=== PATIENT | male | born 1930 | race Caucasian/White ===

== ENCOUNTER 2017-06-17 19:37 | Inpatient (IN) | payer OTHER, MEDICARE ==
[2017-06-17 20:02] VITALS: BMI 26.9
--- NOTE | 2017-06-17 20:29 | PDOC ---
Attending Attestation - ED Attending Attestation I have performed the following: I have examined & evaluated the patient, The case was reviewed & discussed with the resident, I agree w/resident's findings & plan, Exceptions are as noted - HPI HPI: 06/17/17 21:50 The patient is 86 year old male with significant history of hypertension, who presents to the ED for approximately 3 days of progressively worsening AMS. The patient's at bedside reports the patient "fell" out of bed 3 days ago. He denied any physical complaints at the time but states he was unable to stand up since the fall. He does not recall how he fell. Per the patient's , the patient has seemed progressively vague and confused over the past three days. He complains he has been generally weak and ambulates by "crawling on the floor ". He has not been able to stand since his fall and has been lying on the ground , dragging himself to the bathroom when he needs to. This evening, the patient appeared minimally communicative, prompting his ED visit. Speech has been intermittently "garbled" over the past few days with the patient struggling to find words. His speech is reportedly improved on ED arrival. The patient's family also reports several days of decreased PO intake. Reports he last ate 3- 4 days ago. He did not come to the ED sooner because he has refused to per the . No nausea, vomiting, or diaphoresis. No headache, visual changes, numbness or tingling. No fever or chills - Physicial Exam PE: 06/17/17 21:50 GENERAL: Awake, alert, and fully oriented. In no acute distress. HEAD: No signs of trauma EYES: PERRLA, pt not cooperative with EOM exam, sclera anicteric, conjunctiva clear ENT: Auricles normal inspection, hearing grossly normal, nares patent, oropharynx clear without exudates. very dry MM NECK: Normal ROM, supple, no lymphadenopathy, JVD, or masses LUNGS: Breath sounds equal, clear to auscultation bilaterally. No wheezes, and no crackles HEART: Regular rate and rhythm, normal S1 and S2, no murmurs, rubs or gallops ABDOMEN: Soft, nontender, normoactive bowel sounds. No guarding, no rebound. No masses EXTREMITIES: Normal range of motion, no edema. No clubbing or cyanosis. No cords, erythema, or tenderness BACK: No midline spinal tenderness in cervical/thoracic/lumbar region NEUROLOGICAL: word finding difficulty, slurred speech with some stuttering, cranial nerves grossly intact, negative pronator drift, 4/5 strength in all 4 extremities, normal sensation to light touch in all 4 extremities, normal cerebellar exam, gait deferred, normal reflexes and tone SKIN: Skin breakdown to bilateral knees and bilateral elbows. Ecchymosis on anterior left humerus. Bruising on left upper quadrant extrending to the left flank. Bruising on left lower quadrant - Medical Decision Making 06/17/17 23:14 CT of head without contrast, reviewed and interpreted by Imaging Nutritional Chemist. IMPRESSION: No acute intracranial hemorrhage mass effect or midline shift. 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 No evidence of a large territory of subacute stroke. Cannot exclude a small acute stroke. If there is a clinical concern for a small acute stroke then followup MRI of the brain may be needed. Near complete mucosal opacification of the left mastoid air cells most likely consistent with acute mastoiditis. If there is a clinical concern for meningitis then further evaluation and workup with lumbar puncture may be needed. Soft tissue in the left middle ear most likely due to otitis media or cholesteatoma. A verbal report of the abnormal findings were discussed with Dr. Gomez by Dr. Retnaa at the 10:53 PM EST June 17, 2017. THIS DOCUMENT HAS BEEN ELECTRONICALLY SIGNED Elia Retana MD Documentation prepared by Stephanie Santiago, acting as medical anthropologist for Parth Alberto MD. <Stephanie Santiago - Last Filed: 06/17/17 23:14> - Resident Resident Name: Layo Gomez - ED Attending Attestation I have performed the following: I have examined & evaluated the patient, The case was reviewed & discussed with the resident, I agree w/resident's findings & plan, Exceptions are as noted - Medical Decision Making 06/18/17 01:31 86yo M p/w AMS after fall 3 days ago. Vitals unremarkable, exam with slurred speech, bruising, and skin breakdown. C/f CVA 3 days ago, also pt has been down for 3 days and thus c/f rhabdo as well. Will obtain labs, CT, UA, give IVF and admit <Parth Alberto - Last Filed: 06/18/17 01:38>
--- NOTE | 2017-06-17 20:35 | PDOC ---
History of Present Illness - General Chief Complaint: Altered Mental Status Stated Complaint: Altered Mental Status Time Seen by Provider: 06/17/17 19:51 - History of Present Illness Initial Comments: 06/17/17 20:27 Pt is a pleasant 86 year old male with PMH HTN, BPH who was brought to ED by EMS for AMS. This episode began yesterday early afternoon when the pt's found him crawling next to his bed. Pt insists he did not fall but slipped off his bed and reportedly laughed it off. Pt's states that pt was not himself and was very "vague". Per pt's , his mental status continued to deteriorate until this evening when the pt's son arrived at the house and found the pt to be unaware and noncommunicative. It was at this point that they decided to come to the emergency department. Pt has also states he has not been eating or drinking well for "the last couple of days". It was unclear to the pt's whether his decreased intake preceded his fall. NIH Stroke Scale - Last Known Well Date/Time & Onset Date Last Known Well: 06/16/17 Time Last Known Well: 12:00 - Initial Evaluation Level of consciousness: Alert Ask patient the month and their age: Answers both correctly Ask patient to open & close eyes; make fist and let go: Obeys both correctly Best gaze (horizontal eye movement): Normal Visual field testing: No visual field loss Facial paresis (Show teeth/raise eyebrows/close eyes tight): Normal symmetrical movement Motor Function: Left Arm: Some effort against gravity Motor Function: Right Arm: Normal (extends arm 90 (or 45) degrees for 10 seconds without drift Motor Function: Left Leg: Normal (extends leg 30 degrees for 5 seconds without drift) Motor Function: Right Leg: Normal (extends leg 30 degrees for 5 seconds without drift) Limb Ataxia: No ataxia Sensory(Use pinprick test arms,legs,trunk,face/side to side): Normal Best language (Describe picture, name items, read sentences): Mild to moderate aphasia Dysarthria (read several words): Mild to moderate slurring of words Extinction and Inattention: No abnormality - Total Score NIH Stroke Scale Score: 4 Past History - Past Medical History Allergies/Adverse Reactions: Allergies Allergy/AdvReac Type Severity Reaction Status Date / Time No Known Allergies Allergy Verified 06/17/17 19:56 Disorders: Yes (BPH) HTN: Yes - Suicide/Smoking/Psychosocial Hx Smoking History: Unknown if ever smoked Have you smoked in the past 12 months: No Information on smoking cessation initiated: No Hx Alcohol Use: No Drug/Substance Use Hx: No Substance Use Type: None *Physical Exam - Vital Signs Last Vital Signs Temp Pulse Resp BP Pulse Ox 98.0 F 72 16 145/73 100 06/17/17 19:57 06/17/17 19:57 06/17/17 19:57 06/17/17 19:57 06/17/17 19:57 - Physical Exam General Appearance: Yes: Nourished HEENT: positive: EOMI, ALEXANDER. negative: Normal ENT Inspection (dry mucous membranes) Neck: positive: Trachea midline, Supple Respiratory/Chest: positive: Lungs Clear, Normal Breath Sounds. negative: Respiratory Distress, Accessory Muscle Use, Labored Respiration, Wheezing, Hyperresonant, Dullness Cardiovascular: positive: Regular Rhythm, Regular Rate, S1, S2, Murmur (soft systolic murmur with preseverd S1, S2 at LUSB). negative: Edema, JVD Vascular Pulses: Dorsalis-Pedis (R): 1+, Doralis-Pedis (L): 1+ Gastrointestinal/Abdominal: positive: Normal Bowel Sounds, Flat, Soft. negative : Tender, Organomegaly Male Genitalia: positive: other (scrotal swelling) Musculoskeletal: positive: Decreased Range of Motion (left shoulder passive ROM intact. Limited active ROM due to pain. Nontender to palpation) Extremity: positive: Other (abrasions on arms, LLQ of abdomen, b/l knees, toes, ). negative: Tender, Pedal Edema Integumentary: positive: Rash (abrasions as above), Bruising Neurologic: negative: Motor Strength 5/5 (left arm pronated slightly. limited shoulder abduction) ED Treatment Course - LABORATORY CBC & Chemistry Diagram: 06/17/17 21:26 06/18/17 03:21 Medical Decision Making - Medical Decision Making 06/17/17 21:10 Pt is an 86M w/ PMH HTN, BPH who was BIBEMS due to AMS. Pt had an unwitnessed fall and progressively worsening mental status for 2 days which is now improved but not to baseline. Pt has limited active ROM of left shoulder. Pt has pronated left forearm at rest. Pt is clinically very dry. Pt also has scrotal edema. r/o CVA vs SD vs infection -Stroke protocol was ordered. -CT head -Troponin -EKG -Lipids -CBC -CMP -UA r/o traumatic injury -shoulder xray -pelvic xray *DC/Admit/Observation/Transfer Diagnosis at time of Disposition: Rhabdomyolysis Qualifiers: Rhabdomyolysis type: traumatic Encounter type: initial encounter Qualified Code (s): T79.6XXA - Traumatic ischemia of muscle, initial encounter - Referrals - Patient Instructions - Post Discharge Activity
[2017-06-17] MEDS ORDERED: SODIUM CHLORIDE 1,000 ML IV SCH (20:45)
[2017-06-17] MEDS ORDERED: SODIUM CHLORIDE 1,000 ML IV STA (21:28)
[2017-06-17 21:39] LABS: BASO % 0.2 % (0-2.0); HEMATOCRIT 46.2 % (35.4-49); HEMOGLOBIN 15.4 GM/dL (11.7-16.9); LYMPH % 2.5 % (8-40); MCH 28.5 pg (25.7-33.7); MCHC 33.4 g/dl (32.0-35.9); MEAN CELL VOLUME 85.2 fl (80-96); MEAN PLT VOLUME 9.4 fl (7.5-11.1); MONO % 9.3 % (3.8-10.2); PLATELET COUNT 234 K/MM3 (134-434); RBC 5.42 M/mm3 (4.00-5.60); RDW 14.3 % (11.9-15.9); WHITE BLOOD COUNT 17.9 K/mm3 (4.0-10.0)
[2017-06-17 21:51] LABS: INR 1.12 (0.82-1.09); PROTHROMBIN TIME (PATIENT) 12.6 SEC (9.98-11.88)
[2017-06-17 22:09] LABS: ALBUMIN 3.7 g/dl (3.4-5.0); ANION GAP 13 (8-16); BILIRUBIN,TOTAL 2.6 mg/dL (0.2-1.0); BLOOD UREA NITROGEN 69 mg/dL (7-18); CALCIUM 9.3 mg/dL (8.5-10.1); CHLORIDE 108 mmol/L (98-107); CHOLESTEROL 217 mg/dL (50-200); CO2 27 mmol/L (21-32); CREATININE 1.3 mg/dL (0.7-1.3); GLUCOSE,RANDOM 125 mg/dL (74-106); HDL CHOLESTEROL 51 mg/dL (40-60); LDL CHOLESTEROL (ONLY SJRH) 135 mg/dL (5-100); POTASSIUM 3.8 mmol/L (3.5-5.1); SGPT/ALT 209 U/L (12-78); SODIUM 148 mmol/L (136-145); TRIGLYCERIDES 174 mg/dL (35-160)
[2017-06-17 22:32] LABS: ALK PHOS 81 U/L (45-117); SGOT/AST 404 U/L (15-37)
[2017-06-17] MEDS ORDERED: SODIUM CHLORIDE 0.9% 500 ML INFUS.BAG IV ONE (22:51)
[2017-06-18] MEDS ORDERED: ACETAMINOPHEN 500 MG TABLET (FP) PO ONE (00:58)
[2017-06-18] MEDS ORDERED: SODIUM CHLORIDE 0.9% 500 ML INFUS.BAG IV ONE (00:59)
--- NOTE | 2017-06-18 01:13 | HP ---
CHIEF COMPLAINT: AMS, Rhabdomyolysis PCP: HISTORY OF PRESENT ILLNESS: The patient is 86 year old male with significant history of hypertension, who presents to the ED for approximately 3 days of progressively worsening AMS. The patient's at bedside reports the patient "fell" out of bed 3 days ago. He denied any physical complaints at the time but states he was unable to stand up since the fall. He does not recall how he fell. Per the patient's , the patient has seemed progressively vague and confused over the past three days. He complains he has been generally weak and ambulates by "crawling on the floor ". He has not been able to stand since his fall and has been lying on the ground , dragging himself to the bathroom when he needs to. This evening, the patient appeared minimally communicative, prompting his ED visit. Speech has been intermittently "garbled" over the past few days with the patient struggling to find words. His speech is reportedly improved on ED arrival. The patient's family also reports several days of decreased PO intake. Reports he last ate 3- 4 days ago. He did not come to the ED sooner because he has refused to per the . No nausea, vomiting, or diaphoresis. No headache, visual changes, numbness or tingling. No fever or chills ER course was notable for: (1) head CT , cervical spine CT (2)CXR , hip/pelvis Xray (3)CBC, BMP remarkable for leukocytosis and elevated CK, CK-MB , hypernatremia Recent Travel:denies PAST MEDICAL HISTORY: HTN, BPH PAST SURGICAL HISTORY: denies Social History: Smokin/4 pack for 10 years quit 40 years ago Alcohol:denies Drugs: denies Family History: Allergies No Known Allergies Allergy (Verified 06/17/17 19:56) HOME MEDICATIONS: REVIEW OF SYSTEMS CONSTITUTIONAL: Absent: fever, chills, diaphoresis, generalized weakness, malaise, loss of appetite, weight change HEENT: Absent: rhinorrhea, nasal congestion, throat pain, throat swelling, difficulty swallowing, mouth swelling, ear pain, eye pain, visual changes CARDIOVASCULAR: Absent: chest pain, syncope, palpitations, irregular heart rate, lightheadedness , peripheral edema RESPIRATORY: Absent: cough, shortness of breath, dyspnea with exertion, orthopnea, wheezing, stridor, hemoptysis GASTROINTESTINAL: Absent: abdominal pain, abdominal distension, nausea, vomiting, diarrhea, constipation, melena, hematochezia GENITOURINARY: Absent: dysuria, frequency, urgency, hesitancy, hematuria, flank pain, genital pain MUSCULOSKELETAL: Absent: myalgia, arthralgia, joint swelling, back pain, neck pain SKIN: Absent: rash, itching, pallor HEMATOLOGIC/IMMUNOLOGIC: Absent: easy bleeding, easy bruising, lymphadenopathy, frequent infections ENDOCRINE: Absent: unexplained weight gain, unexplained weight loss, heat intolerance, cold intolerance NEUROLOGIC: Absent: headache, focal weakness or paresthesias, dizziness, unsteady gait, seizure, mental status changes, bladder or bowel incontinence PSYCHIATRIC: Absent: anxiety, depression, suicidal or homicidal ideation, hallucinations. PHYSICAL EXAMINATION Vital Signs - 24 hr 06/17/17 19:57 Temperature 98.0 F Pulse Rate 72 Respiratory 16 Rate Blood Pressure 145/73 O2 Sat by Pulse 100 Oximetry (%) GENERAL: Awake, alert, and fully oriented, in no acute distress. HEAD: Normal with no signs of trauma.2x1 cm erythema on left cheek EYES: Pupils equal, round and reactive to light, extraocular movements intact, sclera anicteric, conjunctiva clear. EARS, NOSE, THROAT: dry mucous membranes. NECK: Normal range of motion, supple without lymphadenopathy, JVD, LUNGS: Breath sounds equal, clear to auscultation bilaterally. No wheezes, and no crackles. No accessory muscle use. HEART: Regular rate and rhythm, normal S1 and S2 without murmur, rub or gallop. ABDOMEN: Soft, nontender, distended, normoactive bowel sounds, no guarding, no rebound, scrotum swollen with erythema. Right inguinal erythema MUSCULOSKELETAL:. No CVA tenderness. UPPER EXTREMITIES: 2+ pulses, warm, well-perfused. No cyanosis. No clubbing. No peripheral edema.erythema with echymoses on both elbows, left arm pain with limited range of motion due to pain LOWER EXTREMITIES: 2+ pulses, warm, well-perfused. No calf tenderness. No peripheral edema. B/L knee sever echymoses NEUROLOGICAL: Cranial nerves II-XII intact.slurry speech. gait not observed . PSYCHIATRIC: Cooperative. Good eye contact. Appropriate mood and affect. SKIN: Warm, dry, multiple echymoses on his body with perpura on his stomach Laboratory Results - last 24 hr 06/17/17 06/17/17 06/17/17 21:20 21:26 21:26 WBC 17.9 H D RBC 5.42 Hgb 15.4 Hct 46.2 MCV 85.2 MCH 28.5 MCHC 33.4 RDW 14.3 Plt Count 234 D MPV 9.4 Neutrophils % 88.0 H Lymphocytes % 2.5 L D Monocytes % 9.3 Eosinophils % 0.0 D Basophils % 0.2 PT with INR 12.60 H INR 1.12 Sodium Potassium Chloride Carbon Dioxide Anion Gap BUN Creatinine Creat Clearance w eGFR Random Glucose Calcium Total Bilirubin AST ALT Alkaline Phosphatase Creatine Kinase Creatine Kinase Index CK-MB (CK-2) Troponin I Total Protein Albumin Triglycerides Cholesterol Total LDL Cholesterol HDL Cholesterol Lipase 52 L Blood Type Antibody Screen 06/17/17 06/17/17 21:26 21:26 WBC RBC Hgb Hct MCV MCH MCHC RDW Plt Count MPV Neutrophils % Lymphocytes % Monocytes % Eosinophils % Basophils % PT with INR INR Sodium 148 H Potassium 3.8 Chloride 108 H Carbon Dioxide 27 Anion Gap 13 BUN 69 H Creatinine 1.3 Creat Clearance w eGFR 52.22 Random Glucose 125 H Calcium 9.3 Total Bilirubin 2.6 H AST 404 H ALT 209 H Alkaline Phosphatase 81 Creatine Kinase 9921 H Creatine Kinase Index 0.6 CK-MB (CK-2) 63.134 H Troponin I 0.07 H Total Protein 7.0 Albumin 3.7 Triglycerides 174 H Cholesterol 217 H Total LDL Cholesterol 135 H HDL Cholesterol 51 Lipase Blood Type O POSITIVE Antibody Screen Negative CBC, BMP 06/17/17 21:26 06/17/17 21:26 06/18/2017 CT of head without contrast, reviewed and interpreted by Imaging Pickle Solution Maker. IMPRESSION: No acute intracranial hemorrhage mass effect or midline shift. 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 No evidence of a large territory of subacute stroke. Cannot exclude a small acute stroke. If there is a clinical concern for a small acute stroke then followup MRI of the brain may be needed. Near complete mucosal opacification of the left mastoid air cells most likely consistent with acute mastoiditis. If there is a clinical concern for meningitis then further evaluation and workup with lumbar puncture may be needed. Soft tissue in the left middle ear most likely due to otitis media or cholesteatoma. ASSESSMENT/PLAN: 86 year old male with PMH of HTN , BPH presented to the ED with AMS, S/P mechanical fall 2 days ago was found to have rhabdomyolysis with elevated trop , dehydration, AMS and was admitted for further evaluation # Rhabdomyolysis S/p fall * CK, CK-MB elvated * IV fluids NS bolused X3 in ED * continue with NS @ 100 CC/hr * Repeat CBC, CMP in AM * monitor urine out put * DC hyzar for now # JUANIS * BUN/Cr 69/1.3 * likley 2/2 dehydration 2/2 low oral intake vs rhabdo damage vs UTI * IVf NS @ 100 CC/hr * Urine lytes , * UA, urine cx * Avoid nephrotoxic agents * renal consult * Renal US * * # R/O RI likely demand ischemia * trop I 0.07 * trend trop * EKG without ischemic changes * repeat EKG in AM * Echo # Leukocytosis R/O infection moist likely UTI * WBC 17,000 * Aguiar cx (urine, blood ) * Ceftriaxone 1 gm daily after blood cx * repeat CBC with def * CXR * Sheldon cath , * UA and Urine cx #Acute metabolic encephalopathy R/O CVA * patient family stated that his metal status is not the same in the setting of acute kidney injury with elevated sodium possible metabolic encephalopathy vs infection. * will give the patient 1 stat dose of ceftriaxone after the urine culture and blood culture is sent * c/w IVF hydration * CT scan of the head to r/o stroke * will consider repeating the CT if necessary or an acute change in the patient mental status # Neutrophilia * can be reactive 2/2 to dehydration however in the setting of an acute change in his status * will obtain blood culture, urine culture, * monitor for signs of fever or chill, * give 1 mg ceftriaxone daily X3 day # Hypernatremia 2/2 dehydration vs meds * NA 148 on admission * IVf NS @ 100 CC/hr * water def 2.4 L * monitor * dont drop more than 10 mmlq in 24 hr * Dc hyzar * # left arm pain * limited ROM , with strength 3/5 , sensation intact * F/U Xray * #Transaminities lekley 2/2 dehydration and rhabdo * Abdomen US * repeat lab * continue IV fluids * # HLD * TG, LDL , Cholesterol elevated * low fat diet * avoid statins now due to rhabdo # HTN * Monitor * Hold Hyzar * continue Atenolol # BPH * continue home meds * urology consult # scrotum swelling R/O orchitis * not painful * US scrotum and content * start on ceftriaxone 2gm daily # FEN * Ivf NS @ 100 CC/hr (3 L boluses in ED ) * E: hypernatremia , monitor * N: low sodium diet # proph * SCDS B/L LE * # Dispo * Admit to med-surg Visit type - Emergency Visit Emergency Visit: Yes ED Registration Date: 06/18/17 Care time: The patient presented to the Emergency Department on the above date and was hospitalized for further evaluation of their emergent condition. - New Patient This patient is new to me today: Yes Date on this admission: 06/18/17 - Critical Care Critical Care patient: No
[2017-06-18] MEDS ORDERED: ACETAMINOPHEN 325 MG TABLET (FP) ONE (01:14)
--- NOTE | 2017-06-18 02:33 | PN ---
Teaching Attending Note Name of Resident: Jagjit Baldwin ATTENDING PHYSICIAN STATEMENT I saw and evaluated the patient. I reviewed the resident's note and discussed the case with the resident. I agree with the resident's findings and plan as documented. SUBJECTIVE: patient is NAD, lying in bed no complaints swelling f the scrotum bruises on the arm abdomen distended positive BS no edema dry mouth OBJECTIVE: ASSESSMENT AND PLAN: Problem List - Problems (1) JUANIS (acute kidney injury) Assessment/Plan: 2/2 rhabdomyolysis and dehydration - obtain renal ultrasounds - insert a phillip catheter - IVF hydration at 100cc/hr can increase to 150 cc./hr after an echocardiogram is obtained - obtain urine analysis - obtain urine electrolytes - obtain urine creatinine - renal consult - repeat labs - correct electrolytes - stop the hyzaar Code(s): N17.9 - ACUTE KIDNEY FAILURE, UNSPECIFIED (2) Rhabdomyolysis Code(s): M62.82 - RHABDOMYOLYSIS (3) Dehydration Assessment/Plan: 2/2 medication use and lack of intake of fluids stop the hyzaar IVF monitor I/O Code(s): E86.0 - DEHYDRATION (4) Hypernatremia Assessment/Plan: 2/2 to dehydration water deficit 2.4 L Code(s): E87.0 - HYPEROSMOLALITY AND HYPERNATREMIA (5) Acute metabolic encephalopathy Assessment/Plan: patient family stated that his metal status is not the same in the setting of acute kidney injury with elevated sodium possible metabolic encephalopathy vs infection. will give the patient 1 stat dose of ceftriaxone after the urine culture and blood culture is sent c/w IVF hydration CT scan of the head to r/o stroke will consider repeating the CT if necessary or an acute change in the patient mental status Code(s): G93.41 - METABOLIC ENCEPHALOPATHY (6) Neutrophilia Assessment/Plan: can be reactive 2/2 to dehydration however in the setting of an acute change in his status will obtain blood culture, urine culture, monitor for signs of fever or chill, give 1 dose of ceftriaxone Code(s): D72.9 - DISORDER OF WHITE BLOOD CELLS, UNSPECIFIED (7) BPH (benign prostatic hyperplasia) Assessment/Plan: urology evaluation Code(s): N40.0 - BENIGN PROSTATIC HYPERPLASIA WITHOUT LOWER URINRY TRACT SYMP
[2017-06-18] MEDS ORDERED: CEFTRIAXONE 1 MG in DEXTROSE 5%-WATER - 50 ML IVPB SCH (02:44)
[2017-06-18] MEDS ORDERED: SODIUM CHLORIDE 1,000 ML IV SCH (02:45)
[2017-06-18] MEDS ORDERED: CEFTRIAXONE 1 GM/50 ML BAG ONE (03:44)
[2017-06-18 04:02] LABS: ALBUMIN 3.2 g/dl (3.4-5.0); ALK PHOS 67 U/L (45-117); ANION GAP 9 (8-16); BLOOD UREA NITROGEN 60 mg/dL (7-18); CALCIUM 7.9 mg/dL (8.5-10.1); CHLORIDE 114 mmol/L (98-107); CO2 27 mmol/L (21-32); GLUCOSE,RANDOM 112 mg/dL (74-106); MAGNESIUM 2.7 mg/dL (1.8-2.4); PHOSPHOROUS 3.4 mg/dL (2.5-4.9); POTASSIUM 3.6 mmol/L (3.5-5.1); SGOT/AST 282 U/L (15-37); SGPT/ALT 170 U/L (12-78); SODIUM 150 mmol/L (136-145); TOT PROT 6.1 g/dl (6.4-8.2)
[2017-06-18 05:47] LABS: URINE APPEARANCE CLOUDY; URINE BILIRUBIN NEGATIVE (NEGATIVE); URINE BLOOD 3+ (NEGATIVE); URINE COLOR AMBER; URINE GLUCOSE (UA) NEGATIVE (NEGATIVE); URINE KETONE 1+ (NEGATIVE); URINE NITRITE POSITIVE (NEGATIVE); URINE UROBILINOGEN 4.0 E.U/dl mg/dL (0.2-1.0)
[2017-06-18 06:14] LABS: URINE LEUK ESTERASE 2+ (NEGATIVE); URINE PROTEIN 2+ (NEGATIVE)
[2017-06-18 06:16] LABS: EPI CELLS RARE /HPF (FEW); URINE HYALINE CAST 6 /lpf; URINE MUCUS RARE
[2017-06-18] MEDS ORDERED: HEPARIN NA (PORCINE) 5,000 UNITS/ML 1ML VIAL ONE (06:54)
[2017-06-18] MEDS: HEPARIN NA (PORCINE) 5,000 UNITS/ML 1ML VIAL SQ SCH ×3 (07:00→21:38)
--- NOTE | 2017-06-18 13:08 | EKG ---
Test Reason : Blood Pressure : / mmHG Vent. Rate : 067 BPM Atrial Rate : 067 BPM P-R Int : 172 ms QRS Dur : 148 ms QT Int : 484 ms P-R-T Axes : 052 -70 084 degrees QTc Int : 511 ms NORMAL SINUS RHYTHM RIGHT BUNDLE BRANCH BLOCK LEFT ANTERIOR FASCICULAR BLOCK BIFASCICULAR BLOCK SEPTAL INFARCT , AGE UNDETERMINED T WAVE ABNORMALITY, CONSIDER LATERAL ISCHEMIA ABNORMAL ECG WHEN COMPARED WITH ECG OF 17-JUN-2017 21:08, SEPTAL INFARCT IS NOW PRESENT Confirmed by MD Hal, Terrell ([id number]) on 06/18/2017 1:08:06 PM Referred By: Confirmed By:Terrell Hong MD
--- NOTE | 2017-06-18 13:10 | EKG ---
Test Reason : Blood Pressure : / mmHG Vent. Rate : 066 BPM Atrial Rate : 066 BPM P-R Int : 192 ms QRS Dur : 134 ms QT Int : 490 ms P-R-T Axes : 109 -77 049 degrees QTc Int : 513 ms POOR DATA QUALITY, INTERPRETATION MAY BE ADVERSELY AFFECTED NORMAL SINUS RHYTHM LEFT AXIS DEVIATION RIGHT BUNDLE BRANCH BLOCK ABNORMAL ECG NO PREVIOUS ECGS AVAILABLE Confirmed by MD Hal, Terrell ([id number]) on 06/18/2017 1:09:53 PM Referred By: Confirmed By:Terrell Hong MD
[2017-06-18] MEDS: ATENOLOL 50 MG TABLET (FP) PO SCH (14:00)
--- NOTE | 2017-06-18 14:47 | CONSULT ---
Consultation: REQUESTING PROVIDER: CONSULT REQUEST: We have been asked to medically evaluate this patient for juanis HISTORY OF PRESENT ILLNESS: This is an 86 yo M with PMH of HTN and PBH, who presented due to AMS x 3 d, s/p fall, found to have UTI, hypernatremia, JUANIS and in Rhabdo. 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 Patient reports 2 weeks of dysuria w/o f/c, pelvic or flank pain. He reports worsening confusion, new incontinence, genearlized and b/l LE weakness and decreased PO intake x 3 days. He denies UTI, pyelo or prostatitis history. He reportedly fell down 2 days ago and crawled on [facility] floor causing multiple abrasions on knees, hyps, abdomen and arms. In ED found to have gross hematuria. On presentation afebrile and hemodynamically stable, aaox3 with mild lethargy. Deneis n/v, cp, sob, cough, h/a, visula changes, numbness. REVIEW OF SYSTEMS: CONSTITUTIONAL: Absent: fever, chills, diaphoresis, HEENT: Absent: rhinorrhea, nasal congestion, throat pain, throat swelling, difficulty swallowing CARDIOVASCULAR: Absent: chest pain, syncope, palpitations, lightheadedness, peripheral edema RESPIRATORY: Absent: cough, shortness of breath, dyspnea with exertion, orthopnea GASTROINTESTINAL: Absent: abdominal pain, abdominal distension, nausea, vomiting, diarrhea, constipation GENITOURINARY: Absent: dysuria, flank pain, genital pain MUSCULOSKELETAL: Absent:back pain, neck pain SKIN: Absent: rash, itching, pallor HEMATOLOGIC/IMMUNOLOGIC: Absent: e frequent infections ENDOCRINE: Absent: unexplained weight gain, unexplained weight loss, heat intolerance, cold intolerance NEUROLOGIC: Absent: headache, seizure PSYCHIATRIC: Absent: anxiety, depression PHYSICAL EXAMINATION Vital Signs - 24 hr 06/17/17 06/18/17 06/18/17 19:57 02:25 07:00 Temperature 98.0 F 97.6 F Pulse Rate 72 Pulse Rate [ 66 64 Apical] Respiratory 16 18 21 Rate Blood Pressure 145/73 Blood Pressure 158/58 158/60 [Right Arm] O2 Sat by Pulse 100 97 98 Oximetry (%) 06/18/17 06/18/17 06/18/17 07:30 11:00 14:34 Temperature 98.1 F Pulse Rate 77 73 Pulse Rate [ Apical] Respiratory 18 Rate Blood Pressure 150/72 139/103 Blood Pressure [Right Arm] O2 Sat by Pulse 100 Oximetry (%) GENERAL: Awake, alert, and fully oriented, in no acute distress, mild lethargy. HEAD: Normal with no signs of trauma. EYES: Pupils equal, round and reactive to light, extraocular movements intact, sclera anicteric, conjunctiva clear. No lid lag. EARS, NOSE, THROAT: dry mucous membranes. NECK: supple without JVD, LUNGS: Breath sounds equal, clear to auscultation bilaterally. HEART: Regular rate and rhythm, normal S1 and S2 ABDOMEN: Soft, nontender, not distended, normoactive bowel sounds, no guarding MUSCULOSKELETAL: No CVA tenderness. b/l knee edema UPPER EXTREMITIES: 2+ pulses, warm, well-perfused. No cyanosis. No peripheral edema. LOWER EXTREMITIES: DP not palpabel b/l, warm, well-perfused. No calf tenderness. No peripheral edema. R great lateral toe black dry echar ulcer that appears arterial. L great toe medial black echar possible arterial vs abrasion. NEUROLOGICAL: Cranial nerves II-XII grossly intact. slurred speech due to dry tongue PSYCHIATRIC: Cooperative. Good eye contact. Appropriate mood and affect. SKIN: Warm, dry. multiple abrasions on b/l knees, L hip and abdomen Laboratory Results - last 24 hr 06/17/17 06/17/17 06/17/17 21:20 21:26 21:26 WBC 17.9 H D RBC 5.42 Hgb 15.4 Hct 46.2 MCV 85.2 MCH 28.5 MCHC 33.4 RDW 14.3 Plt Count 234 D MPV 9.4 Neutrophils % 88.0 H Lymphocytes % 2.5 L D Monocytes % 9.3 Eosinophils % 0.0 D Basophils % 0.2 PT with INR 12.60 H INR 1.12 Sodium Potassium Chloride Carbon Dioxide Anion Gap BUN Creatinine Creat Clearance w eGFR Random Glucose Calcium Phosphorus Magnesium Total Bilirubin AST ALT Alkaline Phosphatase Creatine Kinase Creatine Kinase Index CK-MB (CK-2) Troponin I Total Protein Albumin Triglycerides Cholesterol Total LDL Cholesterol HDL Cholesterol Lipase 52 L Urine Color Urine Appearance Urine pH Ur Specific [place] Urine Protein Urine Glucose (UA) Urine Ketones Urine Blood Urine Nitrite Urine Bilirubin Urine Urobilinogen Ur Leukocyte Esterase Urine WBC (Auto) Urine RBC (Auto) Ur Epithelial Cells Hyaline Casts Urine Mucus Ur Random Sodium Ur Random Potassium Ur Random Chloride Blood Type Antibody Screen 06/17/17 06/17/17 06/18/17 21:26 21:26 03:21 WBC RBC Hgb Hct MCV MCH MCHC RDW Plt Count MPV Neutrophils % Lymphocytes % Monocytes % Eosinophils % Basophils % PT with INR INR Sodium 148 H 150 H Potassium 3.8 3.6 Chloride 108 H 114 H Carbon Dioxide 27 27 Anion Gap 13 9 BUN 69 H 60 H Creatinine 1.3 1.0 D Creat Clearance w eGFR 52.22 > 60 Random Glucose 125 H 112 H Calcium 9.3 7.9 L Phosphorus 3.4 Magnesium 2.7 H Total Bilirubin 2.6 H 2.0 H D AST 404 H 282 H D ALT 209 H 170 H Alkaline Phosphatase 81 67 Creatine Kinase 9921 H Creatine Kinase Index 0.6 CK-MB (CK-2) 63.134 H Troponin I 0.07 H Total Protein 7.0 6.1 L Albumin 3.7 3.2 L Triglycerides 174 H Cholesterol 217 H Total LDL Cholesterol 135 H HDL Cholesterol 51 Lipase Urine Color Urine Appearance Urine pH Ur Specific [place] Urine Protein Urine Glucose (UA) Urine Ketones Urine Blood Urine Nitrite Urine Bilirubin Urine Urobilinogen Ur Leukocyte Esterase Urine WBC (Auto) Urine RBC (Auto) Ur Epithelial Cells Hyaline Casts Urine Mucus Ur Random Sodium Ur Random Potassium Ur Random Chloride Blood Type O POSITIVE Antibody Screen Negative 06/18/17 06/18/17 06/18/17 03:21 05:31 05:31 WBC RBC Hgb Hct MCV MCH MCHC RDW Plt Count MPV Neutrophils % Lymphocytes % Monocytes % Eosinophils % Basophils % PT with INR INR Sodium Potassium Chloride Carbon Dioxide Anion Gap BUN Creatinine Creat Clearance w eGFR Random Glucose Calcium Phosphorus Magnesium Total Bilirubin AST ALT Alkaline Phosphatase Creatine Kinase Creatine Kinase Index CK-MB (CK-2) Troponin I 0.08 H Total Protein Albumin Triglycerides Cholesterol Total LDL Cholesterol HDL Cholesterol Lipase Urine Color Rylee Urine Appearance Cloudy Urine pH 5.0 Ur Specific [place] 1.019 Urine Protein 2+ H Urine Glucose (UA) Negative Urine Ketones 1+ H Urine Blood 3+ H Urine Nitrite Positive Urine Bilirubin Negative Urine Urobilinogen 4.0 e.u/dl Ur Leukocyte Esterase 1+ H Urine WBC (Auto) 152 Urine RBC (Auto) 361 Ur Epithelial Cells Rare Hyaline Casts 6 Urine Mucus Rare Ur Random Sodium 16 Ur Random Potassium 35.4 Ur Random Chloride 33 Blood Type Antibody Screen 06/18/17 06/18/17 06:36 06:36 WBC RBC Hgb Hct MCV MCH MCHC RDW Plt Count MPV Neutrophils % Lymphocytes % Monocytes % Eosinophils % Basophils % PT with INR INR Sodium Potassium Chloride Carbon Dioxide Anion Gap BUN Creatinine Creat Clearance w eGFR Random Glucose Calcium Phosphorus Magnesium Total Bilirubin AST ALT Alkaline Phosphatase Creatine Kinase 5054 H Cancelled Creatine Kinase Index 0.7 CK-MB (CK-2) 35.521 H Troponin I 0.07 H Total Protein Albumin Triglycerides Cholesterol Total LDL Cholesterol HDL Cholesterol Lipase Urine Color Urine Appearance Urine pH Ur Specific [place] Urine Protein Urine Glucose (UA) Urine Ketones Urine Blood Urine Nitrite Urine Bilirubin Urine Urobilinogen Ur Leukocyte Esterase Urine WBC (Auto) Urine RBC (Auto) Ur Epithelial Cells Hyaline Casts Urine Mucus Ur Random Sodium Ur Random Potassium Ur Random Chloride Blood Type Antibody Screen Active Medications Generic Name Dose Route Start Last Admin Trade Name Freq PRN Reason Stop Dose Admin Atenolol 100 mg 06/18/17 10:00 06/18/17 14:00 Tenormin - PO 100 mg DAILY CODEY Administration Doxazosin Mesylate 4 mg 06/18/17 22:00 Cardura - PO HS CODEY Heparin Sodium (Porcine) 5,000 unit 06/18/17 06:00 06/18/17 14:00 Heparin - SQ 5,000 unit TID CODEY Administration Sodium Chloride 1,000 mls @ 100 mls/hr 06/18/17 02:45 06/18/17 03:53 Normal Saline - IV 100 mls/hr ASDIR CODEY Administration Ceftriaxone Sodium 1 mg/ 50 mls @ 100 mls/hr 06/18/17 02:44 06/18/17 03:53 Dextrose IVPB 100 mls/hr DAILY CODEY Administration ASSESSMENT/PLAN: This is an 86 yo M with PMH of HTN and PBH, who presented due to AMS x 3 d, s/p fall, found to have UTI, hypernatremia, JUANIS and in Rhabdo. 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 Complicated UTI -in setting of BPH -continue abx, f/u cultures JUANIS secondary to dehydration and Rhabdo Hypernatremia -decreased po intake and muscular injury due to fall in setting of sepsis and CVA -CK 9900, bun/creat 69/1.3 improved to 1, GFR improved to > 60 from 52, NA 150 -free water deficit 2.9 L s/p 3L NS -change fluids to 1/2 NS @ 100 -Urology consult -monitor renal fxn, daily cpk, avoid neprotoxic agents Acute R lenticulostriate infarct -MRI reviewed -stroke workup per neurology -statin, permissive HTN, tele monitoring -TTE, car duplex, speech/swallow eval; can add po free water when cleared for PO -can give Asa Multiple abrasions -no fractures found on imaging -local wound care Dispo: We will continue to follow the patient. Thank you for this consultative opportunity. Problem List - Problems (1) UTI (urinary tract infection) Code(s): N39.0 - URINARY TRACT INFECTION, SITE NOT SPECIFIED (2) HTN (hypertension) Code(s): I10 - ESSENTIAL (PRIMARY) HYPERTENSION (3) JUANIS (acute kidney injury) Code(s): N17.9 - ACUTE KIDNEY FAILURE, UNSPECIFIED (4) BPH (benign prostatic hyperplasia) Code(s): N40.0 - BENIGN PROSTATIC HYPERPLASIA WITHOUT LOWER URINRY TRACT SYMP (5) Dehydration Code(s): E86.0 - DEHYDRATION (6) Hypernatremia Code(s): E87.0 - HYPEROSMOLALITY AND HYPERNATREMIA (7) Neutrophilia Code(s): D72.9 - DISORDER OF WHITE BLOOD CELLS, UNSPECIFIED (8) Rhabdomyolysis Code(s): M62.82 - RHABDOMYOLYSIS Qualifiers: Rhabdomyolysis type: traumatic Encounter type: initial encounter Qualified Code(s): T79.6XXA - Traumatic ischemia of muscle, initial encounter Visit type - Emergency Visit Emergency Visit: Yes ED Registration Date: 06/18/17 Care time: The patient presented to the Emergency Department on the above date and was hospitalized for further evaluation of their emergent condition. - New Patient This patient is new to me today: Yes Date on this admission: 06/18/17 - Critical Care Critical Care patient: No
--- NOTE | 2017-06-18 15:04 | PN ---
Teaching Attending Note Name of Resident: Andreea Li (Nephrology) ATTENDING PHYSICIAN STATEMENT I saw and evaluated the patient. I reviewed the resident's note and discussed the case with the resident. I agree with the resident's findings and plan as documented. Renal lease see consult filled out by resident. Pt is an 86 year old male with pmhx of HTN and BPH who was brought in with a change in mental status. He slipped and fell out of bed and was crawling around the house. His mental status was deteriorating. He did not come to the ER until his son found him at home. He has been like that for 3 days. He has multiple bruises and scabs on his knees and let hip. I was called to evaluate him for JUANIS and hypernatremia. Pt was also found to have rhabdo. Pt had phillip placed and he has gross hematuria. PMHx htn bph family hx denies social hx, neg smoking ros malaise nkda Current Medications Generic Name Dose Route Start Last Admin Trade Name Freq PRN Reason Stop Dose Admin Atenolol 100 mg 06/18/17 10:00 06/18/17 14:00 Tenormin - PO 100 mg DAILY CODEY Administration Doxazosin Mesylate 4 mg 06/18/17 22:00 Cardura - PO HS CODEY Heparin Sodium (Porcine) 5,000 unit 06/18/17 06:00 06/18/17 14:00 Heparin - SQ 5,000 unit TID CODEY Administration Sodium Chloride 1,000 mls @ 100 mls/hr 06/18/17 02:45 06/18/17 03:53 Normal Saline - IV 100 mls/hr ASDIR CODEY Administration Ceftriaxone Sodium 1 mg/ 50 mls @ 100 mls/hr 06/18/17 02:44 06/18/17 03:53 Dextrose IVPB 100 mls/hr DAILY CODEY Administration Last Vital Signs Temp Pulse Resp BP Pulse Ox 98.1 F 73 18 139/103 100 06/18/17 11:00 06/18/17 14:34 06/18/17 11:00 06/18/17 14:34 06/18/17 07:30 Current Active Problems JUANIS (acute kidney injury) (Acute) Acute metabolic encephalopathy (Acute) BPH (benign prostatic hyperplasia) (Acute) Dehydration (Acute) Hypernatremia (Acute) Neutrophilia (Acute) Rhabdomyolysis (Acute) Laboratory Tests 09/11/16 06/17/17 06/17/17 11:50 21:26 21:26 WBC 17.9 H D Hct 46.2 Sodium 148 H Potassium Chloride Carbon Dioxide Anion Gap BUN Creatinine 0.8 1.3 Creatine Kinase 9921 H Troponin I 0.07 H Urine Protein Urine Ketones Urine Blood 06/18/17 06/18/17 06/18/17 03:21 03:21 05:31 WBC Hct Sodium 150 H Potassium 3.6 Chloride 114 H Carbon Dioxide 27 Anion Gap 9 BUN 60 H Creatinine 1.0 D Creatine Kinase Troponin I 0.08 H Urine Protein 2+ H Urine Ketones 1+ H Urine Blood 3+ H 06/18/17 06:36 WBC Hct Sodium Potassium Chloride Carbon Dioxide Anion Gap BUN Creatinine Creatine Kinase 5054 H Troponin I 0.07 H Urine Protein Urine Ketones Urine Blood cardio s1s2 reg pulm clear GI soft, bs positive ext bilateral knee abrasions with scabs right great toe ulcer neuro awake skin multiple bruises and scrapes on limbs and abdomen phillip present with gross hematuria circ pos pulses renal ultrasound neg hydro mri small acute infarct ct head neg cxr reviewed Impression 1. JUANIS 2. Hypernatremia 3. rhabdo 4. CVA 5. s/p fall 6. change in mental status 7. gross hematuria 8. hx HTN 9. leukocytosis Plan - change fluids to 1/2 ns - cpk is improving, repeat daily - urology evaluation for gross hematuria - neuro eval for CVA - rhabdo likely from fall and being on the ground for a prolonged time - hypernatremia likely from decreased water intake - the combination of rhabdo and dehydration contributed to JUANIS - free water deficit is about 2.87 - called and discussed with medical attending - admit to monitored unit - will follow Dr Mays
[2017-06-18] MEDS ORDERED: SODIUM CHLORIDE 0.45% 1,000 ML IV SCH (15:30)
[2017-06-18] MEDS: ASPIRIN 81 MG CHEWABLE TABLETS PO SCH ×2 (15:39→16:05)
[2017-06-18] MEDS: ATORVASTATIN CA 80 MG TABLET (FP) PO ONE ×2 (15:39→16:21)
[2017-06-18 16:45] LABS: ANION GAP 9 (8-16); BLOOD UREA NITROGEN 49 mg/dL (7-18); CALCIUM 8.4 mg/dL (8.5-10.1); CHLORIDE 116 mmol/L (98-107); CO2 28 mmol/L (21-32); CREATININE 0.8 mg/dL (0.7-1.3); GLUCOSE,RANDOM 103 mg/dL (74-106); POTASSIUM 3.2 mmol/L (3.5-5.1); SODIUM 153 mmol/L (136-145)
--- NOTE | 2017-06-18 17:42 | CON.GU ---
Consult Consult Specialty:: Referred by:: Dr. Elizondo Reason for Consultation:: gross hematuria, orchitis - History of Present Illness Chief Complaint: gross hematuria, orchitis History of Present Illness: 86 year old male admitted with AMS. He has a history of BPH but hasn't seen a urologist in a long time. He is managed on Avodart. He has a phillip cath with gross hematuria. He also has some scrotal swelling. He denies any dysuria. 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 denies: Burning, Discharge, Flank Pain, Frequency, Testicular Pain, Urgency Physical Exam- Vital Signs: Vital Signs Temperature 97.7 F 06/18/17 14:45 Pulse Rate 72 06/18/17 14:45 Respiratory Rate 20 06/18/17 14:45 Blood Pressure 157/73 06/18/17 14:45 O2 Sat by Pulse Oximetry (%) 96 06/18/17 15:15 Constitutional: Yes: Well Nourished, No Distress, Calm Renal/: Yes: Phillip Present, Hematuria, Scrotal Edema. No: Bladder Distention , CVA Tenderness - Left, CVA Tenderness - Right Labs: CBC, BMP 06/17/17 21:26 06/18/17 14:50 Imaging - Results Ultrasound: Report Reviewed Problem List - Problems (1) Gross hematuria Assessment/Plan: may be secondary to BPH with a UTI. treat with antibiotics. If it doesnt resolve will need cystoscopy. US reveled multiple large renal cysts but no stones or hydronephrosis. Code(s): R31.0 - GROSS HEMATURIA (2) Orchitis Assessment/Plan: as seen on US. antbitoics Code(s): N45.2 - ORCHITIS (3) UTI (urinary tract infection) Code(s): N39.0 - URINARY TRACT INFECTION, SITE NOT SPECIFIED
--- NOTE | 2017-06-18 18:31 | PN ---
Teaching Attending Note Name of Resident: Haider Tolbert ATTENDING PHYSICIAN STATEMENT I saw and evaluated the patient. I reviewed the resident's note and discussed the case with the resident. I agree with the resident's findings and plan as documented. SUBJECTIVE:continues to feel weak however improved since arrival. c/o L sided chest pain. denies Cp, SOB, fever, chills, N/V/C/D states he does not feel he is having any difficulty speaking as per son in the room his speech is dysarthric. agrees his mentation is improved since when he saw him yesterday. OBJECTIVE: Last Vital Signs Temp Pulse Resp BP Pulse Ox 97.7 F 72 20 157/73 96 06/18/17 14:45 06/18/17 14:45 06/18/17 14:45 06/18/17 14:45 06/18/17 15:15 General NAD CV S1 S2 + Lungs CTA anteriorly Abdomen soft, mild distended. + bruising on L torso which is tender and petechiae across the lower abdomen. extremities large hematoma on both knees, petechia to B/L hips Neuro + dysarthric. CN grossly intact, sensation grossly intact, strength 3/5 LUE, 4/5 RUE 2/5 B/L LE. negative dysmetria. unable to illicit babinski ASSESSMENT AND PLAN: 86yo M with PMH HTN and BPH presnted for AMS 1. Acute R infarct with possible decrease R vertebral artery flow. stroke order set initiated. out of TPA window. will transfer to stroke unit. frequent neurochecks. consult neuro, Speech therapist, and PT. start asa and statin. echo and carotid dopplers 2. Rhabdomyolysis- likely due to prolonged immobility and crawling on his knees. CK is coming down. cont IVF and hydration 3. UTI/orchitis- on ceftriaxone. f/u cx 4. Troponinemia- possible demand ischemia or in setting of JUANIS and rhabdo. on cardiac monitoring. no intervention or workup at this time 5. Gross hematuria- possible BPH vs UTI. maintain phillip. trend Hgb. repeat CBC now. txn if needed for Hgb <8. consult urology 6. s/p mechanical fall- likely due to CVA. multiple imaging studies with no acute fracture. check dedicated rib study to evluate L rib pain 7. Acute metabolic encephalopathy- possible due to dehydration vs acute CVA. clinically improved. 8. Hypernatremia- dehydration. cont IVF 9. Transaminitis- likely dehydration. improving 10. hypokalemia- KCl 11. HTN- outside of window require for permissive HTN. can re-initate BP. goal SBP < 140 12. BPH- re-start flomax 14. DVT ppx- will hold heparin until bleeding improves and hgb is stable. place SCD for now. 15. spoke with son and present at bedside. all quesitons answered. agree with plan
[2017-06-18 20:35] LABS: HEMATOCRIT 40.1 % (35.4-49); HEMOGLOBIN 13.4 GM/dL (11.7-16.9); MCH 28.4 pg (25.7-33.7); MCHC 33.5 g/dl (32.0-35.9); MEAN PLT VOLUME 9.7 fl (7.5-11.1); PLATELET COUNT 215 K/MM3 (134-434); RBC 4.71 M/mm3 (4.00-5.60); RDW 14.1 % (11.9-15.9); WHITE BLOOD COUNT 11.5 K/mm3 (4.0-10.0)
[2017-06-18] MEDS: FINASTERIDE 5 MG TABLET (FP) PO SCH (21:32)
[2017-06-18] MEDS: DOXAZOSIN MESYLATE 4 MG TABLET PO SCH (21:33)
--- NOTE | 2017-06-18 21:35 | PN ---
Physical Exam: Note: Pt examined earlier in morning SUBJECTIVE: Briefly, 86yo M with history of HTN and BPH who presented to the ED with slightly altered mentation per family. Pt was alert and oriented today and remembers the events that happened. Pt reports rolling out of bed onto the floor nontraumatically, however pt was unable to get up due to weakness in legs. Pt reports slightly slurring of speech, however notes being mostly weak. Pt denies any headaches, visual disturbances, n/v/d/c, constitutional symptoms, CP/discomfort, palpitations, abdominal pain. Pt does admit to polyuria with some urinary incontinence prior, however is unsure about dysuria. OBJECTIVE: Vital Signs Period Temp Pulse Resp BP Sys/Johnson Pulse Ox Last 24 Hr 97.6 F-98.1 F 62-77 18-21 139-158/58-103 96-100 GENERAL: NAD, awake, alert, and fully oriented, lying in bed. HEENT: AT/NC, No JVD, EOMI, GAYE, sclera anicteric, dry mucosa with normal structures of the mouth, no plaques or erythema in posterior oropharynx LUNGS: CTA bilaterally, no wheezes, rhonchi, or rales bilaterally. No accessory muscle use. HEART: RRR, S1, S2 with 3/6 systolic murmur noted best heard at LLSB, with a 2/ 6 systolic murmur in the LUSB ABDOMEN: Soft, nontender, nondistended, normoactive bowel sounds, no guarding, no hepatomegaly, no suprapubic tenderness. : Swollen scrotum without obvious hernia defect. No bowel sounds auscultated. EXTREMITIES: 2+ DP pulses, warm, well-perfused, no edema. NEUROLOGICAL: EOMI, GAYE, no tongue deviation, no uvula deviation. Facial asymmetry noted with some dysarthria, however smile is symmetrical and facial muscles 5/5 with sensation intact. Strength 5/5 in RUE, with 4+/5 in LUE. LLE noted to be symmetrical, however strength diminished (roughly 4/5) in leg extension. Babinski down-going. Gait not observed. PSYCH: Normal mood, normal affect. SKIN: Warm, dry, normal turgor, no rashes or lesions noted Laboratory Results - last 24 hr 06/17/17 06/17/17 06/17/17 21:20 21:26 21:26 WBC 17.9 H D RBC 5.42 Hgb 15.4 Hct 46.2 MCV 85.2 MCH 28.5 MCHC 33.4 RDW 14.3 Plt Count 234 D MPV 9.4 Neutrophils % 88.0 H Lymphocytes % 2.5 L D Monocytes % 9.3 Eosinophils % 0.0 D Basophils % 0.2 PT with INR 12.60 H INR 1.12 Sodium Potassium Chloride Carbon Dioxide Anion Gap BUN Creatinine Creat Clearance w eGFR Random Glucose Calcium Phosphorus Magnesium Total Bilirubin AST ALT Alkaline Phosphatase Creatine Kinase Creatine Kinase Index CK-MB (CK-2) Troponin I Total Protein Albumin Triglycerides Cholesterol Total LDL Cholesterol HDL Cholesterol Lipase 52 L Urine Color Urine Appearance Urine pH Ur Specific Leighton Urine Protein Urine Glucose (UA) Urine Ketones Urine Blood Urine Nitrite Urine Bilirubin Urine Urobilinogen Ur Leukocyte Esterase Urine WBC (Auto) Urine RBC (Auto) Ur Epithelial Cells Hyaline Casts Urine Mucus Ur Random Sodium Ur Random Potassium Ur Random Chloride Blood Type Antibody Screen 06/17/17 06/17/17 06/18/17 21:26 21:26 03:21 WBC RBC Hgb Hct MCV MCH MCHC RDW Plt Count MPV Neutrophils % Lymphocytes % Monocytes % Eosinophils % Basophils % PT with INR INR Sodium 148 H 150 H Potassium 3.8 3.6 Chloride 108 H 114 H Carbon Dioxide 27 27 Anion Gap 13 9 BUN 69 H 60 H Creatinine 1.3 1.0 D Creat Clearance w eGFR 52.22 > 60 Random Glucose 125 H 112 H Calcium 9.3 7.9 L Phosphorus 3.4 Magnesium 2.7 H Total Bilirubin 2.6 H 2.0 H D AST 404 H 282 H D ALT 209 H 170 H Alkaline Phosphatase 81 67 Creatine Kinase 9921 H Creatine Kinase Index 0.6 CK-MB (CK-2) 63.134 H Troponin I 0.07 H Total Protein 7.0 6.1 L Albumin 3.7 3.2 L Triglycerides 174 H Cholesterol 217 H Total LDL Cholesterol 135 H HDL Cholesterol 51 Lipase Urine Color Urine Appearance Urine pH Ur Specific Leighton Urine Protein Urine Glucose (UA) Urine Ketones Urine Blood Urine Nitrite Urine Bilirubin Urine Urobilinogen Ur Leukocyte Esterase Urine WBC (Auto) Urine RBC (Auto) Ur Epithelial Cells Hyaline Casts Urine Mucus Ur Random Sodium Ur Random Potassium Ur Random Chloride Blood Type O POSITIVE Antibody Screen Negative 06/18/17 06/18/1706/18/17 03:21 05:31 05:31 WBC RBC Hgb Hct MCV MCH MCHC RDW Plt Count MPV Neutrophils % Lymphocytes % Monocytes % Eosinophils % Basophils % PT with INR INR Sodium Potassium Chloride Carbon Dioxide Anion Gap BUN Creatinine Creat Clearance w eGFR Random Glucose Calcium Phosphorus Magnesium Total Bilirubin AST ALT Alkaline Phosphatase Creatine Kinase Creatine Kinase Index CK-MB (CK-2) Troponin I 0.08 H Total Protein Albumin Triglycerides Cholesterol Total LDL Cholesterol HDL Cholesterol Lipase Urine Color Rylee Urine Appearance Cloudy Urine pH 5.0 Ur Specific Leighton 1.019 Urine Protein 2+ H Urine Glucose (UA) Negative Urine Ketones 1+ H Urine Blood 3+ H Urine Nitrite Positive Urine Bilirubin Negative Urine Urobilinogen 4.0 e.u/dl Ur Leukocyte Esterase 1+ H Urine WBC (Auto) 152 Urine RBC (Auto) 361 Ur Epithelial Cells Rare Hyaline Casts 6 Urine Mucus Rare Ur Random Sodium 16 Ur Random Potassium 35.4 Ur Random Chloride 33 Blood Type Antibody Screen 06/18/17 06/18/17 06/18/17 06:36 06:36 14:50 WBC RBC Hgb Hct MCV MCH MCHC RDW Plt Count MPV Neutrophils % Lymphocytes % Monocytes % Eosinophils % Basophils % PT with INR INR Sodium 153 H Potassium 3.2 L Chloride 116 H Carbon Dioxide 28 Anion Gap 9 BUN 49 H Creatinine 0.8 Creat Clearance w eGFR Random Glucose 103 Calcium 8.4 L Phosphorus Magnesium Total Bilirubin AST ALT Alkaline Phosphatase Creatine Kinase 5054 H Cancelled 3354 H Creatine Kinase Index 0.7 0.7 CK-MB (CK-2) 35.521 H 25.529 H Troponin I 0.07 H Total Protein Albumin Triglycerides Cholesterol Total LDL Cholesterol HDL Cholesterol Lipase Urine Color Urine Appearance Urine pH Ur Specific Leighton Urine Protein Urine Glucose (UA) Urine Ketones Urine Blood Urine Nitrite Urine Bilirubin Urine Urobilinogen Ur Leukocyte Esterase Urine WBC (Auto) Urine RBC (Auto) Ur Epithelial Cells Hyaline Casts Urine Mucus Ur Random Sodium Ur Random Potassium Ur Random Chloride Blood Type Antibody Screen 06/18/17 19:00 WBC 11.5 H D RBC 4.71 Hgb 13.4 D Hct 40.1 MCV 85.0 MCH 28.4 MCHC 33.5 RDW 14.1 Plt Count 215 MPV 9.7 Neutrophils % Lymphocytes % Monocytes % Eosinophils % Basophils % PT with INR INR Sodium Potassium Chloride Carbon Dioxide Anion Gap BUN Creatinine Creat Clearance w eGFR Random Glucose Calcium Phosphorus Magnesium Total Bilirubin AST ALT Alkaline Phosphatase Creatine Kinase Creatine Kinase Index CK-MB (CK-2) Troponin I Total Protein Albumin Triglycerides Cholesterol Total LDL Cholesterol HDL Cholesterol Lipase Urine Color Urine Appearance Urine pH Ur Specific Leighton Urine Protein Urine Glucose (UA) Urine Ketones Urine Blood Urine Nitrite Urine Bilirubin Urine Urobilinogen Ur Leukocyte Esterase Urine WBC (Auto) Urine RBC (Auto) Ur Epithelial Cells Hyaline Casts Urine Mucus Ur Random Sodium Ur Random Potassium Ur Random Chloride Blood Type Antibody Screen Active Medications Generic Name Dose Route Start Last Admin Trade Name Freq PRN Reason Stop Dose Admin Aspirin 81 mg 06/18/17 15:30 06/18/17 16:05 Asa - PO 81 mg DAILY CODEY Administration Atenolol 100 mg 06/18/17 10:00 06/18/17 14:00 Tenormin - PO 100 mg DAILY CODEY Administration Atorvastatin Calcium 40 mg 06/19/17 22:00 Lipitor - PO HS CODEY Doxazosin Mesylate 4 mg 06/18/17 22:00 Cardura - PO HS CODEY Finasteride 5 mg 06/18/17 17:45 Proscar - PO DAILY CODEY Heparin Sodium (Porcine) 5,000 unit 06/18/17 06:00 06/18/17 14:00 Heparin - SQ 5,000 unit TID CODEY Administration Ceftriaxone Sodium 1 mg/ 50 mls @ 100 mls/hr 06/18/17 02:44 06/18/17 03:53 Dextrose IVPB 100 mls/hr DAILY CODEY Administration Sodium Chloride 1,000 mls @ 100 mls/hr 06/18/17 15:30 06/18/17 16:03 1/2 Normal Saline IV 100 mls/hr ASDIR CODEY Administration ASSESSMENT/PLAN: 86yo M with only h/o HTN and BPH presenting for AMS found to have UTI on UA with traumatic phillip insert and infarct confirmed by Brain MRI. 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 orchitis --Currently Ceftriaxone day 1-2 --BCx's pending; Urine Cx pending --Scrotal ultrasound reviewed 3) Suspected Rhabdomyolysis --2/2 immobility and dehydration with altered event --CK elevated; trending down currently --1/2NS @100cc/hr due to hypernatremia noted 4) Elevated troponins --most likely 2/2 to demand ischemia --Continue cardiac monitoring; EKG without ST abnormalities --Continue to trend --Pt already on ASA 81mg 5) Hematuria --2/2 BPH with traumatic phillip insert vs. UTI --Phillip to maintain --Trend CBC; asymptomatic currently --Transfusion threshold <8 --Urology consulted 6) HTN --Outside of permissive HTN window --Goal BP <140 systolic --Continue medication regiment --Cardura 4mg HS --Atenolol 100mg qDaily 7) BPH --Continue Finasteride FEN: Fluids: 1/2NS @100cc/hr Electrolyte abnormalities: Hypernatremia (2/2 dehydration; deficit 2.9L), Hypokalemia (will replete as needed) Nutrition: NPO currently until S&S eval PPX DVT - holding heparin in setting of hematuria; SCDs both legs applied for now Dispo: Noncardiac tele for stroke monitoring Family: Perez (son) - ; pt okay with discussing case with family Case discussed with Dr. Heaven Tolbert, DO - Internal Medicine PGY-1 Visit type - Emergency Visit Emergency Visit: No - New Patient This patient is new to me today: Yes Date on this admission: 06/18/17 - Critical Care Critical Care patient: No
[2017-06-19] MEDS: POTASSIUM CHLORIDE 10 MEQ in SODIUM CHLORIDE 0.45% 1,000 ML IVPB SCH ×2 (00:59→19:56)
[2017-06-19] MEDS ORDERED: SODIUM CHLORIDE 0.45% 1,000 ML IV SCH (04:00)
--- NOTE | 2017-06-19 07:02 | PN ---
Physical Exam: SUBJECTIVE: No events overnight. Only complaint is that he is thirsty and that he is missing his lower dentures. OBJECTIVE: Vital Signs Period Temp Pulse Resp BP Sys/Johnson Pulse Ox Last 24 Hr 97.6 F-98.1 F 54-77 18-20 139-158/62-103 96-100 GENERAL: NAD, awake, alert, and fully oriented, resting comfortably in bed HEENT: No JVD, EOMI, GAYE, NC/AT LUNGS: CTA bilaterally, no wheezes, rhonchi, rales. no accessory muscle use. HEART: RRR, S1, S2 with 2/6 systolic murmur at LLSB and apex ABDOMEN: Soft, nontender, nondistended, normoactive bowel sounds, no guarding EXTREMITIES: 2+ pulses, warm, well-perfused, no edema. NEUROLOGICAL: Dysarthria present, but improved from yesterday. No tongue deviation, no uvula deviation. Strength 5/5 RUE and 4+/5 in LUE. Strength 2/5 symmetrically in lower extremities. Reflexes 2/4 throughout. Gait not observed. PSYCH: Normal mood, normal affect. SKIN: Warm, dry, no rashes noted, multiple abrasions to abdomen and b/l knees noted Laboratory Results - last 24 hr 06/18/17 06/18/17 06/18/17 05:31 06:36 06:36 WBC RBC Hgb Hct MCV MCH MCHC RDW Plt Count MPV Sodium Potassium Chloride Carbon Dioxide Anion Gap BUN Creatinine Random Glucose Calcium Creatine Kinase 5054 H Cancelled Creatine Kinase Index 0.7 CK-MB (CK-2) 35.521 H Troponin I 0.07 H Ur Leukocyte Esterase 1+ H 06/18/17 06/18/17 14:50 19:00 WBC 11.5 H D RBC 4.71 Hgb 13.4 D Hct 40.1 MCV 85.0 MCH 28.4 MCHC 33.5 RDW 14.1 Plt Count 215 MPV 9.7 Sodium 153 H Potassium 3.2 L Chloride 116 H Carbon Dioxide 28 Anion Gap 9 BUN 49 H Creatinine 0.8 Random Glucose 103 Calcium 8.4 L Creatine Kinase 3354 H Creatine Kinase Index 0.7 CK-MB (CK-2) 25.529 H Troponin I Ur Leukocyte Esterase Active Medications Generic Name Dose Route Start Last Admin Trade Name Freq PRN Reason Stop Dose Admin Aspirin 81 mg 06/18/17 15:30 06/18/17 16:05 Asa - PO 81 mg DAILY CODEY Administration Atenolol 100 mg 06/18/17 10:00 06/18/17 14:00 Tenormin - PO 100 mg DAILY CDOEY Administration Atorvastatin Calcium 80 mg 06/19/17 22:00 Lipitor - PO HS CODEY Doxazosin Mesylate 4 mg 06/18/17 22:00 06/18/17 21:33 Cardura - PO Not Given HS CODEY Finasteride 5 mg 06/18/17 17:45 06/18/17 21:32 Proscar - PO Not Given DAILY CODEY Ceftriaxone Sodium 1 mg/ 50 mls @ 100 mls/hr 06/18/17 02:44 06/18/17 03:53 Dextrose IVPB 100 mls/hr DAILY CODEY Administration Potassium Chloride 10 meq/ 1,005 mls @ 100 mls/hr 06/18/17 22:00 06/19/17 00: 59 Sodium Chloride IVPB 06/20/17 03:59 100 mls/hr Q10H CODEY Administration ASSESSMENT/PLAN: 86yo M with only h/o HTN and BPH presenting for AMS found to have UTI on UA with traumatic phillip insert and infarct confirmed by Brain MRI. 1) Acute R CVA --Head CT negative for hemorrhage; Brain MRI results reviewed --Hyperplastic R vertebral artery --Vascular consulted --Neurochecks q2h --Continue Lipitor 80mg HS PO --Continue ASA 81mg qDaily --Speech and swallow eval --MBS ordered; most likely will be okay with dysphagia diet and thickened liquids, but cannot r/o silent aspiration. 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 orchitis --Currently Ceftriaxone day 2 --BCx's and UCx negative --Scrotal ultrasound reviewed 3) Suspected Rhabdomyolysis --2/2 immobility and dehydration with altered event --CK elevated; trending down currently --1/3NS+KCL @100cc/hr due to hypernatremia noted --Nephrology on board 4) Elevated troponins --most likely 2/2 to demand ischemia --Continue cardiac monitoring; EKG without ST abnormalities --Continue to trend --Pt already on ASA 81mg 5) Hematuria --2/2 BPH with traumatic phillip insert vs. UTI --Phillip to maintain --Trend CBC; asymptomatic currently --Transfusion threshold <8 --Urology consulted 6) HTN --Outside of permissive HTN window --Goal BP <140 systolic --Continue medication regiment --Cardura 4mg HS --Atenolol 100mg qDaily 7) BPH --Continue Finasteride FEN: Fluids: 1/3NS @100cc/hr +KCl Electrolyte abnormalities: Hypernatremia , Hypokalemia (will replete as needed) Nutrition: Dysphagia diet with MBS tomorrow PPX DVT - holding heparin in setting of hematuria; SCDs both legs applied for now Dispo: Noncardiac tele for stroke monitoring Family: Perez (son) - ; pt okay with discussing case with family Case discussed with Dr. Heaven Tolbert, DO - Internal Medicine PGY-1 Visit type - Emergency Visit Emergency Visit: No - New Patient This patient is new to me today: No - Critical Care Critical Care patient: No
[2017-06-19 08:57] LABS: HEMATOCRIT 41.7 % (35.4-49); HEMOGLOBIN 13.7 GM/dL (11.7-16.9); MCH 28.4 pg (25.7-33.7); MCHC 32.8 g/dl (32.0-35.9); MEAN CELL VOLUME 86.6 fl (80-96); MEAN PLT VOLUME 9.2 fl (7.5-11.1); PLATELET COUNT 212 K/MM3 (134-434); RBC 4.81 M/mm3 (4.00-5.60); RDW 14.3 % (11.9-15.9); WHITE BLOOD COUNT 11.4 K/mm3 (4.0-10.0)
[2017-06-19 09:09] LABS: ANION GAP 10 (8-16); BLOOD UREA NITROGEN 43 mg/dL (7-18); CALCIUM 8.7 mg/dL (8.5-10.1); CHLORIDE 116 mmol/L (98-107); CO2 28 mmol/L (21-32); GLUCOSE,RANDOM 78 mg/dL (74-106); POTASSIUM 3.3 mmol/L (3.5-5.1); SODIUM 154 mmol/L (136-145)
[2017-06-19 09:26] LABS: ALK PHOS 74 U/L (45-117); BILIRUBIN,TOTAL 1.6 mg/dL (0.2-1.0); CREATININE 0.7 mg/dL (0.7-1.3); SGOT/AST 171 U/L (15-37); SGPT/ALT 144 U/L (12-78); TOT PROT 5.7 g/dl (6.4-8.2)
[2017-06-19] MEDS: CEFTRIAXONE 1 G/50 ML PREMIX 50 ML IVPB SCH (10:21)
--- NOTE | 2017-06-19 10:21 | CONSULT ---
Admitting History and Physical - Primary Care Physician PCP: Yissel Collado - Admission History of Present Illness: Per EMR: This is an 86 yo M with PMH of HTN and PBH, who presented due to AMS x 3 d, s/p fall, found to have UTI, hypernatremia, JUANIS and in Rhabdo. 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 Patient reports 2 weeks of dysuria w/o f/c, pelvic or flank pain. He reports worsening confusion, new incontinence, genearlized and b/l LE weakness and decreased PO intake x 3 days. He denies UTI, pyelo or prostatitis history. He reportedly fell down 2 days ago and crawled on the floor causing multiple abrasions on knees, hyps, abdomen and arms. In ED found to have gross hematuria. On presentation afebrile and hemodynamically stable, aaox3 with mild lethargy. Deneis n/v, cp, sob, cough, h/a, visula changes, numbness. Acute R infarct with possible decrease R vertebral artery flow. Pt fully oriented for me. 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 [employer] History - Admission Reason For Visit: Altered Mental Status, RHABDOMYOLSIS - Diagnostics X-ray: Report Reviewed CT Scan: Report Reviewed MRI: Report Reviewed - General Mental Status: Alert and Oriented, Awake and Alert, Able to Follow Commands Attention: Intact Ability to Follow Directions: Excellent Head/Neck Control: WFL - Hearing Hearing: Functional Speech Evaluation - Communication Primary Language: TAJIK Communication: Yes: Within Normal Limits Oral Expression Ability: Yes: Mild Impairment - Speech Production Able to Make Needs Known: Yes: WNL Intelligibility: Yes: Mildly Impaired - Speech Characteristics Voice Loudness: Normal Voice Pitch: Yes: Normal Voice Phonatory-based Quality: Yes: Normal Nasal Resonance: Normal Articulation: Yes: Imprecise (mild imprecision of lingua-alveolar phonemes. Pt' s dentures are at home, likely contributing to imprecision.) Dysfluency: Yes: Clonic (pmh of stuttering as a child. Controlled, now with mild increase in dysfluency of speech.) Rate of Speech: Intact - Language/Auditory Comprehension Follows: Yes: 2 Stage Simple Commands Observation: Able to respond to yes/no queries: Yes, Yes/No Confusion: No, Comprehends Conversational Speech: Yes - Language/Verbal Expression Able to Respond to Simple Queries: Yes: WNL Able to Communicate Wants and Needs: Yes: WNL Functional Communication Status: Yes: WNL - Swallow Evaluation/Bedside Assessment Current Nutritional Intake: NPO Oral Secretions: Yes: WFL Dentition: Yes: Edentulous (Wears dentures, not in hospital) Facial Symmetry at Rest: Facial Droop Left (slight at rest) Facial Symmetry on Retraction: Symmetrical Facial Movement: Controlled Against Resistance Opening: Normal Against Resistance Closing: Normal Pucker Lips: Normal Smile: Normal Lingual Movement: Normal, Symmetric Lingual Speed of Movement: Normal Lingual Movement Strgth Against Opposition: Reduced (mild) Lingual Movement Characteristics: Normal Velopharyngeal Movement: Normal Laryngeal Movement: Labored,delay initiation Rate of Intake: WFL Bolus Size: WFL Labial Seal: Impaired Left (slight) Oral Prep Time: Increased Pocketing: None Timing of Swallow: Delayed Coughing/Throat Clear: Yes (thin liquids) Change in Voice: Yes (wetness on thin liquids) Recommendations - Speech Evaluation, Impression/Plan Impression: Mild articulatory imprecision and increase in dysfluency of speech. Aspiration on thin liquid likely sec delayed swallow onset. Swallow seems fairly strong once triggered. - Dysphagia Impressions/Plan Swallowing Skills: Impaired Dysphagia Impressions: Mild Impairment *Silent aspiration: cannot be R/O at bedside Dysphagia Treatment Plan: Small Bites, Chin Tuck/Down, Clear Pocket Food, 1/2 tsp. at a time, Elevate HOB during feed Recommendations: Modified Barium Swallow, Other (Monitor PO tolerance. If vocal wetness, cough, throat clearinng, NPO until MBS) - Recommendations Diet Consistency: Dysphagia Pureed Medication Administration: Crushed with applesauce Liquids: Honey Thick Supplement: Magic Cup, Ensure Pudding
[2017-06-19] MEDS: FINASTERIDE 5 MG TABLET (FP) PO SCH (10:39)
[2017-06-19] MEDS: ATENOLOL 50 MG TABLET (FP) PO SCH (10:39)
[2017-06-19] MEDS: ASPIRIN 81 MG CHEWABLE TABLETS PO SCH (10:39)
--- NOTE | 2017-06-19 10:48 | CON.NEURO ---
Consult - History of Present Illness History of Present Illness: 86 yo M with PMH of HTN and PBH, who presented due to AMS x 3 d, s/p fall, found to have UTI, hypernatremia, JUANIS and in Rhabdo. Patient reports 2 weeks of dysuria w/o f/c, pelvic or flank pain. He reports worsening confusion, new incontinence, generalized and b/l LE weakness and decreased PO intake x 3 days. Found to have elevated creatinine, NA, inc LFTs and WBC. 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 feels he is at baseline now. 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 Renal/: Yes: BPH - Alcohol/Substance Use Hx Alcohol Use: No - Smoking History Smoking history: Unknown if ever smoked Have you smoked in the past 12 months: No Home Medications - Allergies Allergies/Adverse Reactions: Allergies Allergy/AdvReac Type Severity Reaction Status Date / Time No Known Allergies Allergy Verified 06/17/17 19:56 Physical Exam-Neuro Vital Signs: Vital Signs Temperature 98 F 06/19/17 10:00 Pulse Rate 57 L 06/19/17 10:00 Respiratory Rate 20 06/19/17 10:00 Blood Pressure 170/59 06/19/17 10:00 O2 Sat by Pulse Oximetry (%) 96 06/18/17 22:00 Constitutional: Yes: No Distress, Calm Labs: CBC, BMP 06/19/17 06:00 06/19/17 06:00 INR, PTT INR 1.12 (0.82-1.09) 06/17/17 21:26 - Neuro Exam Level Of Consciousness: Yes: Alert (awake and alert, EOMI, no facial, motor UE slight asterixis, no drift, LLE weakness distally, left plantar up ) Gait: Deferred Imaging - Results Cat Scan: Report Reviewed MRI: Report Reviewed, Image Reviewed Problem List - Problems (1) CVA (cerebral vascular accident) Code(s): I63.9 - CEREBRAL INFARCTION, UNSPECIFIED (2) Acute metabolic encephalopathy Code(s): G93.41 - METABOLIC ENCEPHALOPATHY Assessment/Plan 86 yo M with PMH of HTN and PBH, who presented due to AMS x 3 d, s/p fall, found to have UTI, hypernatremia, JUANIS and in Rhabdo. Altered mental state, suspect S/p stroke with fall and rhabdomyloysis. Found to have elevated creatinine, NA, inc LFTs and WBC. new small vessel stroke with residual left side weakness. agree with ASA/statin (watch Lfts ) ECHO, holter Doppler; ok to hold BB thelma --though BP remains elevated and will eventually need to be optimized. metabolites FU will need rehab Dr Ellis [phone]
[2017-06-19 12:17] LABS: MAGNESIUM 2.8 mg/dL (1.8-2.4); PHOSPHOROUS 2.2 mg/dL (2.5-4.9)
--- NOTE | 2017-06-19 12:42 | PN ---
Teaching Attending Note Name of Resident: Haider Tolbert ATTENDING PHYSICIAN STATEMENT I saw and evaluated the patient. I reviewed the resident's note and discussed the case with the resident. I agree with the resident's findings and plan as documented. SUBJECTIVE:states he feels less weak today. states his speech is normal. pain on L chest has diminished. denies Cp, SOB, fever, chills, N/v/C/D OBJECTIVE: Last Vital Signs Temp Pulse Resp BP Pulse Ox 98 F 57 L 20 170/59 96 06/19/17 10:00 06/19/17 10:00 06/19/17 10:00 06/19/17 10:00 06/18/17 22:00 Intake & Output 06/16/17 06/17/17 06/18/17 06/19/17 23:59 23:59 23:59 23:59 Intake Total 700 Output Total 1500 900 Balance -800 -900 Weight 177 lb 181 lb 4 oz General NAD CV S1 S2 + Lungs CTA anteriorly Abdomen soft, + bruising on L torso which is tender and petechiae across the lower abdomen. extremities large hematoma on both knees, petechia to B/L hips Neuro + dysarthric. CN grossly intact, sensation grossly intact, strength 3/5 LUE, 4/5 RUE 2/5 B/L LE. ASSESSMENT AND PLAN: 86yo M with PMH HTN and BPH presnted for Acute metabolic encephalopathy 1. Acute R infarct with possible decrease R vertebral artery flow. some dysarthric speech but improved since yesterday. neuro consulted. swallowing eval ungoing at thsi time. echo done. carotid doppler pending. PT assesssment today. on asa/plavix 2. Rhabdomyolysis- likely due to prolonged immobility and crawling on his knees. CK is coming down. cont IVF and hydration 3. UTI/orchitis- on ceftriaxone day 2. f/u cx 4. Troponinemia- possible demand ischemia or in setting of JUANIS and rhabdo. has bradycardia on monitor. repeat ekg now showing new ant fasciluar block. old RBBB. will consult cardio. may need ischemia eval. on cardiac monitoring. 5. Gross hematuria- possible BPH vs UTI. maintain phillip. hgb stable. continues to have hematuria. will monitor. . txn if needed for Hgb <8. consult urology 6. s/p mechanical fall- likely due to CVA. multiple imaging studies with no acute fracture. check dedicated rib study to evaluate L rib pain 7. Acute metabolic encephalopathy- possible due to dehydration vs acute CVA. clinically improved. 8. Hypernatremia- dehydration. cont IVF 9. Transaminitis- likely dehydration. improving 10. hypokalemia- KCl 11. HTN- above goal. would hold AV morena blockers with bradycardia. start hydralazine. goal SBP < 140 12. BPH- flomax 14. DVT ppx- start hep sq.
--- NOTE | 2017-06-19 13:04 | CON.CARD ---
Consult Consult Specialty:: cardiology Referred by:: Estelle Allen Reason for Consultation:: Abnormal ECG - History of Present Illness Chief Complaint: Syncope and mental status changes History of Present Illness: The patient is a 86-year-old man with a history of hypertension, BPH, who was admitted with a new stroke. The patient apparently rolled out of bed and could not stand up. His found him confused and disoriented, crawling on the floor. The patient was found to have a new right-sided stroke. He speech is improved. He is mentating at baseline. Denies chest pains, shortness of breath, palpitations. The patient is quite comfortable. 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 [employer] Medications - Allergies Allergies/Adverse Reactions: Allergies Allergy/AdvReac Type Severity Reaction Status Date / Time No Known Allergies Allergy Verified 06/17/17 19:56 Review of Systems - Review of Systems Constitutional: reports: No Symptoms Eyes: reports: No Symptoms HENT: reports: No Symptoms Neck: reports: No Symptoms Cardiovascular: reports: No Symptoms Respiratory: reports: No Symptoms Gastrointestinal: reports: No Symptoms Genitourinary: reports: No Symptoms Breasts: reports: No Symptoms Reported Musculoskeletal: reports: Muscle Pain, Muscle Weakness Integumentary: reports: Bruising Neurological: reports: Change in Speech Endocrine: reports: No Symptoms Hematology/Lymphatic: reports: No Symptoms Psychiatric: reports: No Symptoms - Risk Factors Known Risk Factors: Yes: Age, Hypertension Vital Signs: Vital Signs Temperature 98 F 06/19/17 10:00 Pulse Rate 57 L 06/19/17 10:00 Respiratory Rate 20 06/19/17 10:00 Blood Pressure 170/59 06/19/17 10:00 O2 Sat by Pulse Oximetry (%) 96 06/18/17 22:00 Constitutional: Yes: Well Nourished, No Distress, Calm Eyes: Yes: WNL, Conjunctiva Clear HENT: Yes: WNL, Atraumatic, Normocephalic Neck: Yes: WNL, Supple, Trachea Midline Respiratory: Yes: WNL, Regular, CTA Bilaterally Gastrointestinal: Yes: WNL, Normal Bowel Sounds, Soft Renal/: Yes: WNL Cardiovascular: Yes: Regular Rate and Rhythm, Bradycardia JVD: No Carotid Bruit: Yes PMI: Non-Displaced Heart Sounds: Yes: S1, S2 Murmur: Yes: Systolic Murmur, Grade 2 Musculoskeletal: Yes: WNL Extremities: Yes: Other (Multiple bruises) Edema: No Peripheral Pulses WNL: Yes Peripheral Pulses: 1+ Left Carotid, 1+ Right Carotid, 1+ Left Femoral, 1+ Right Femoral, 1+ Left Popliteal, 1+ Right Popliteal, 1+ Left Doralis Pedis, 1+ Right Dorsalis Pedis Integumentary: Yes: Bruising Neurological: Yes: Dysarthria, Weakness ...Motor Strength: WNL Psychiatric: Yes: WNL - Other Data Labs, Other Data: CBC, BMP 06/19/17 06:00 06/19/17 06:00 INR, PTT INR 1.12 (0.82-1.09) 06/17/17 21:26 Assessment/Plan Elderly man presenting with a new stroke. Clinically improving. The patient denies chest pains and shortness of breath. He is quite comfortable. The ECG shows normal sinus rhythm with a left anterior fascicular block and a right bundle branch block. There are no acute ECG changes. This is not the reason that the patient fell. He clearly had a stroke. No need for intervention on this matter. The echocardiogram showed both ventricles are functioning normally. There is mild aortic valve stenosis. No other clinically important findings on that study. There is no CHF. Agree with holding beta blockers because of resting bradycardia, noted on telemetry. There is no need for further cardiac workup nor testing in this setting. Would stop hydralazine. Consider Norvasc 5 mg daily for blood pressure control. Target blood pressure at this moment 150/80. Please do not hesitate to call us PRN.
[2017-06-19] MEDS ORDERED: NAPH,MB-DB/K PH,MBDB POWDER PACKET PO ONE (13:30)
[2017-06-19] MEDS ORDERED: POTASSIUM CHLORIDE TABS 20 MEQ TABLET.ER (FP) PO ONE ×2 (13:31→17:30)
--- NOTE | 2017-06-19 13:31 | PN ---
Progress Note, Physician History of Present Illness: Pt seen and examined at bedside. He is more awake and alert today than he was yesterday. He denies shortness of breath. He is hungry and asking for food. - Current Medication List Current Medications: Active Medications Aspirin (Asa -) 81 mg PO DAILY [facility] Last Admin: 06/19/17 10:39 Dose: 81 mg Atorvastatin Calcium (Lipitor -) 80 mg PO HS [facility] Doxazosin Mesylate (Cardura -) 4 mg PO HS [facility] Last Admin: 06/18/17 21:33 Dose: Not Given Finasteride (Proscar -) 5 mg PO DAILY [facility] Last Admin: 06/19/17 10:39 Dose: 5 mg Heparin Sodium (Porcine) (Heparin -) 5,000 unit SQ BID [facility] Hydralazine HCl (Apresoline -) 10 mg PO TID [facility] Potassium Chloride 10 meq/ (Sodium Chloride) 1,005 mls @ 100 mls/hr IVPB Q10H [facility] Stop: 06/20/17 03:59 Last Admin: 06/19/17 00:59 Dose: 100 mls/hr CEFTRIAXONE 1 G/50 ML PREMIX (Ceftriaxone 1 Gm-D5w Bag) 50 mls @ 100 mls/hr IVPB DAILY [facility] Last Admin: 06/19/17 10:21 Dose: 100 mls/hr Potassium Phos/Sodium Phos (Phos-Nak Packet -) 2 packet PO ONCE ONE Stop: 06/19/17 13:31 - Objective Vital Signs: Vital Signs Temperature 98 F 06/19/17 10:00 Pulse Rate 57 L 06/19/17 10:00 Respiratory Rate 20 06/19/17 10:00 Blood Pressure 170/59 06/19/17 10:00 O2 Sat by Pulse Oximetry (%) 96 06/18/17 22:00 Constitutional: Yes: Calm Eyes: Yes: Conjunctiva Clear HENT: Yes: Atraumatic Cardiovascular: Yes: S1, S2 Respiratory: Yes: CTA Bilaterally Gastrointestinal: Yes: Soft Genitourinary: Yes: Sheldon Present, Hematuria Musculoskeletal: Yes: Muscle Weakness Extremities: Yes: Other (multiple abrasions) Edema: No Integumentary: Yes: Bruising, Laceration Neurological: Yes: Oriented Psychiatric: Yes: Oriented Labs: CBC, BMP 06/19/17 06:00 06/19/17 06:00 INR, PTT INR 1.12 (0.82-1.09) 06/17/17 21:26 Problem List - Problems (1) JUANIS (acute kidney injury) Code(s): N17.9 - ACUTE KIDNEY FAILURE, UNSPECIFIED (2) BPH (benign prostatic hyperplasia) Code(s): N40.0 - BENIGN PROSTATIC HYPERPLASIA WITHOUT LOWER URINRY TRACT SYMP (3) Dehydration Code(s): E86.0 - DEHYDRATION (4) HTN (hypertension) Code(s): I10 - ESSENTIAL (PRIMARY) HYPERTENSION (5) Hypernatremia Code(s): E87.0 - HYPEROSMOLALITY AND HYPERNATREMIA (6) Rhabdomyolysis Code(s): M62.82 - RHABDOMYOLYSIS Qualifiers: Rhabdomyolysis type: traumatic Encounter type: initial encounter Qualified Code(s): T79.6XXA - Traumatic ischemia of muscle, initial encounter (7) UTI (urinary tract infection) Code(s): N39.0 - URINARY TRACT INFECTION, SITE NOT SPECIFIED Assessment/Plan Current Medications Generic Name Dose Route Start Last Admin Trade Name Freq PRN Reason Stop Dose Admin Aspirin 81 mg 06/18/17 15:30 06/19/17 10:39 Asa - PO 81 mg DAILY [facility] Administration Atorvastatin Calcium 80 mg 06/19/17 22:00 Lipitor - PO HS [facility] Doxazosin Mesylate 4 mg 06/18/17 22:00 06/18/17 21:33 Cardura - PO Not Given HS [facility] Finasteride 5 mg 06/18/17 17:45 06/19/17 10:39 Proscar - PO 5 mg DAILY [facility] Administration Heparin Sodium (Porcine) 5,000 unit 06/19/17 22:00 Heparin - SQ BID [facility] Hydralazine HCl 10 mg 06/19/17 14:00 Apresoline - PO TID [facility] Potassium Chloride 10 meq/ 1,005 mls @ 100 mls/hr 06/18/17 22:00 06/19/17 00: 59 Sodium Chloride IVPB 06/20/17 03:59 100 mls/hr Q10H [facility] Administration CEFTRIAXONE 1 G/50 ML PREMIX 50 mls @ 100 mls/hr 06/19/17 10:00 06/19/17 10: 21 Ceftriaxone 1 Gm-D5w Bag IVPB 100 mls/hr DAILY [facility] Administration Potassium Phos/Sodium Phos 2 packet 06/19/17 13:30 Phos-Nak Packet - PO 06/19/17 13:31 ONCE ONE Impression 1. JUANIS 2. Hypernatremia 3. rhabdo 4. CVA 5. s/p fall 6. change in mental status 7. gross hematuria 8. hx HTN 9. leukocytosis 10. UTI Plan - can change fluids to d5 1/3rd saline - repeat labs in am - cpk is improving - renal function stabilizing - urology input appreciated, monitor urine color - neuro eval for cva - rhabdo likely from fall and being on the ground for a prolonged time - hypernatremia likely from decreased water intake - speech and swallow eval appreciated - will follow
[2017-06-19] MEDS ORDERED: DEXTROSE 5%-1/3 NS - 500 ML with POTASSIUM CHLORIDE 10 MEQ IVPB SCH (13:45)
[2017-06-19] MEDS: hydrALAZINE HCL 10 MG TABLET PO SCH ×2 (14:37→14:45)
[2017-06-19] MEDS: POTASSIUM CHLORIDE 10 MEQ in DEXTROSE 5%-1/3 NS - 500 ML IVPB SCH ×3 (17:35→23:54)
[2017-06-19] MEDS ORDERED: ACETAMINOPHEN 325 MG TABLET (FP) PO PRN (20:31)
[2017-06-19] MEDS ORDERED: PT OWN MED DRAWER 7, Y5N ONE (21:19)
[2017-06-19] MEDS: ATORVASTATIN CA 80 MG TABLET (FP) PO SCH (21:27)
[2017-06-19] MEDS: DOXAZOSIN MESYLATE 4 MG TABLET PO SCH (21:28)
[2017-06-19] MEDS ORDERED: HEPARIN NA (PORCINE) 5,000 UNITS/ML 1ML VIAL SQ SCH (22:00)
[2017-06-19] MEDS ORDERED: ATORVASTATIN CA 40 MG TABLET (FP) PO SCH (22:00)
[2017-06-20] MEDS: POTASSIUM CHLORIDE 10 MEQ in DEXTROSE 5%-1/3 NS - 500 ML IVPB SCH ×3 (03:55→08:33)
[2017-06-20 08:17] LABS: HEMATOCRIT 38.6 % (35.4-49); HEMOGLOBIN 12.6 GM/dL (11.7-16.9); MCH 28.3 pg (25.7-33.7); MCHC 32.7 g/dl (32.0-35.9); MEAN CELL VOLUME 86.6 fl (80-96); MEAN PLT VOLUME 8.8 fl (7.5-11.1); PLATELET COUNT 190 K/MM3 (134-434); RBC 4.46 M/mm3 (4.00-5.60); RDW 14.2 % (11.9-15.9); WHITE BLOOD COUNT 8.9 K/mm3 (4.0-10.0)
[2017-06-20 08:38] LABS: ALBUMIN 2.7 g/dl (3.4-5.0); ANION GAP 8 (8-16); BILIRUBIN,TOTAL 1.3 mg/dL (0.2-1.0); BLOOD UREA NITROGEN 32 mg/dL (7-18); CALCIUM 8.3 mg/dL (8.5-10.1); CHLORIDE 115 mmol/L (98-107); CO2 30 mmol/L (21-32); CREATININE 0.8 mg/dL (0.7-1.3); GLUCOSE,RANDOM 140 mg/dL (74-106); MAGNESIUM 2.5 mg/dL (1.8-2.4); POTASSIUM 3.6 mmol/L (3.5-5.1); SGOT/AST 113 U/L (15-37); SGPT/ALT 118 U/L (12-78); SODIUM 153 mmol/L (136-145); TOT PROT 5.2 g/dl (6.4-8.2)
[2017-06-20 08:39] LABS: ALK PHOS 64 U/L (45-117)
[2017-06-20] MEDS ORDERED: amLODIPine BESYLATE 5 MG TABLET (FP) PO SCH (10:00)
[2017-06-20] MEDS: CEFTRIAXONE 1 G/50 ML PREMIX 50 ML IVPB SCH (10:32)
[2017-06-20] MEDS: FINASTERIDE 5 MG TABLET (FP) PO SCH (10:33)
[2017-06-20] MEDS: ASPIRIN 81 MG CHEWABLE TABLETS PO SCH (10:33)
--- NOTE | 2017-06-20 12:30 | PN ---
Progress Note, [employer] TECHNICIAN - Note Progress Note: Selected Entries 06/19/17 06/19/17 06/19/17 02:00 06:00 06:37 Breakfast Supper Temperature 97.6 F 98.1 F 98.1 F 06/19/17 06/19/17 06/19/17 10:00 14:00 18:58 Breakfast Supper 75% Temperature 98 F 98 F 98.1 F 06/19/17 06/19/17 06/20/17 21:00 22:00 02:00 Breakfast Supper Temperature 100.5 F H 99.9 F H 98.1 F 06/20/17 06/20/17 06/20/17 06:00 09:26 10:00 Breakfast 75% Supper Temperature 97.5 F L 97.9 F Laboratory Tests 06/18/17 06/19/17 06/20/17 19:00 06:00 07:00 WBC 11.5 H D 11.4 H 8.9 Pt is tolerating puree and honey thick liquid. Upon reassessment, clinically aspirating still on thin liquid with responsive cough. MBS ordered, however, no availability in schedule, per Radiology. However, MBS at this time would only reinforce aspiration clinically demonstrated. MBS can be done as pt improves, to upgrade or as out pt, if discharged. Continue dys puree diet. Trial nectar thick liquid, magic cup, ensure compact. Monitor tolreance.
--- NOTE | 2017-06-20 13:15 | PN ---
Physical Exam: SUBJECTIVE: No events overnight. No new complaints today. OBJECTIVE: Vital Signs Period Temp Pulse Resp BP Sys/Johnson Pulse Ox Last 24 Hr 97.5 F-100.5 F 58-69 20-20 118-154/49-76 97-98 GENERAL: NAD, awake, alert, and fully oriented, resting comfortably in bed HEENT: No JVD, EOMI, GAYE, NC/AT LUNGS: CTA bilaterally, no wheezes, rhonchi, rales. no accessory muscle use. HEART: RRR, S1, S2 with 2/6 systolic murmur at LLSB and apex ABDOMEN: Soft, nontender, nondistended, normoactive bowel sounds, no guarding EXTREMITIES: 2+ pulses, warm, well-perfused, no edema. NEUROLOGICAL: Dysarthria present, but improved from yesterday. No tongue deviation, no uvula deviation. Strength 5/5 RUE and 4+/5 in LUE. Strength 2/5 symmetrically in lower extremities. Reflexes 2/4 throughout. Gait not observed. PSYCH: Normal mood, normal affect. SKIN: Warm, dry, no rashes noted, multiple abrasions to abdomen and b/l knees noted Laboratory Results - last 24 hr 06/20/17 06/20/17 06/20/17 07:00 07:00 07:00 WBC 8.9 RBC 4.46 Hgb 12.6 Hct 38.6 MCV 86.6 MCH 28.3 MCHC 32.7 RDW 14.2 Plt Count 190 MPV 8.8 Sodium 153 H Potassium 3.6 Chloride 115 H Carbon Dioxide 30 Anion Gap 8 BUN 32 H D Creatinine 0.8 Creat Clearance w eGFR > 60 Random Glucose 140 H D Calcium 8.3 L Magnesium 2.5 H Total Bilirubin 1.3 H AST 113 H D ALT 118 H Alkaline Phosphatase 64 Creatine Kinase 993 H Cancelled Creatine Kinase Index 0.3 CK-MB (CK-2) 3.481 Total Protein 5.2 L Albumin 2.7 L Active Medications Generic Name Dose Route Start Last Admin Trade Name Freq PRN Reason Stop Dose Admin Acetaminophen 650 mg 06/19/17 20:31 06/19/17 21:28 Tylenol - PO 650 mg Q6H PRN Administration FEVER OR PAIN Amlodipine Besylate 5 mg 06/20/17 10:00 06/20/17 10:33 Norvasc - PO 5 mg DAILY [facility] Administration Aspirin 81 mg 06/18/17 15:30 06/20/17 10:33 Asa - PO 81 mg DAILY [facility] Administration Atorvastatin Calcium 80 mg 06/19/17 22:00 06/19/17 21:27 Lipitor - PO 80 mg HS [facility] Administration Bacitracin 1 applic 06/20/17 11:30 Bacitracin - TP DAILY [facility] Doxazosin Mesylate 4 mg 06/18/17 22:00 06/19/17 21:28 Cardura - PO 4 mg HS [facility] Administration Finasteride 5 mg 06/18/17 17:45 06/20/17 10:33 Proscar - PO 5 mg DAILY [facility] Administration CEFTRIAXONE 1 G/50 ML PREMIX 50 mls @ 100 mls/hr 06/19/17 10:00 06/20/17 10: 32 Ceftriaxone 1 Gm-D5w Bag IVPB 100 mls/hr DAILY [facility] Administration Potassium Chloride 10 meq/ 500 mls @ 150 mls/hr 06/20/17 13:12 Dextrose/Sodium Chloride IVPB Q6H [facility] ASSESSMENT/PLAN: 2. Rhabdomyolysis- likely due to prolonged immobility and crawling on his knees. CK under 1K. 3. UTI/orchitis- on ceftriaxone day 3. f/u cx 4. Troponinemia- possible demand ischemia or in setting of JUANIS and rhabdo. bradycardia reolved. cont to hold beta thelma. cardio on board. 5. Gross hematuria- possible BPH vs UTI. cont to have hematuria. UOP decreased from yesterday. on D51/3NS will increase rate and monitor UOP. if hematuria does not resolve may require cystoscopy. maintain phillip. hgb stable. txn if needed for Hgb <8. urology on board 6. s/p mechanical fall- likely due to CVA. multiple imaging studies with no acute fracture. check dedicated rib study to evaluate L rib pain 7. Acute metabolic encephalopathy- possible due to dehydration vs acute CVA. clinically improved. 8. Hypernatremia- dehydration. cont IVF d51/3NS 9. Transaminitis- likely dehydration. improving 10. hypokalemia- KCl in IVF 11. HTN- above goal. started norvasc yesterday. monitor. titrate to optimize BP 12. BPH- flomax 14. DVT ppx- hep sq. 86yo M with only h/o HTN and BPH presenting for AMS found to have UTI on UA with traumatic phillip insert and infarct confirmed by Brain MRI. 1) Acute R CVA --Head CT negative for hemorrhage; Brain MRI results reviewed --Neuro on board --Continue to medically optimize BP --Repeat vascular dopplers in 1 month --Continue Lipitor 80mg HS PO --Continue ASA 81mg qDaily --Speech and swallow eval continue --keep with dysphagia puree and nectar thick liquids --MBS eventually --Echocardiogram reviewed: normal LV func/size, mild MR with thickened valve --Carotid dopplers reviewed: R ICA with 59% - 60% stenosis 2) Sepsis 2/2 UTI vs. orchitis --Currently Ceftriaxone day 3 --BCx's and UCx negative --Fever spikes noted yesterday --Continue to monitor 3) Suspected Rhabdomyolysis --2/2 immobility and dehydration with altered event --CK trending down to 900 today --1/3NS+KCL @100cc/hr due to hypernatremia noted --Nephrology on board --Currently oliguric; will increase fluids to 150cc/hr with current fluids to try and stimulate urine output --Phillip in place 4) Elevated troponins --most likely 2/2 to demand ischemia --Continue cardiac monitoring; EKG without ST abnormalities --Continue to trend --Pt already on ASA 81mg 5) Hematuria --2/2 BPH with traumatic phillip insert vs. UTI --Phillip to maintain --Trend CBC; asymptomatic currently --Transfusion threshold <8 --Urology consulted --Pt seems to have coloration clearing --Monitor for signs of hematuria 6) HTN --Outside of permissive HTN window --Goal BP <140 systolic --Continue medication regiment --Cardura 4mg HS --Atenolol 100mg qDaily --Continue norvasc 5mg qdaily 7) BPH --Continue Finasteride FEN: Fluids: 1/3NS @100cc/hr +KCl Electrolyte abnormalities: Hypernatremia (see fluids above) Nutrition: Dysphagia diet with thickened liquids PPX DVT - Restart heparin SQ TID Dispo: Pt will need NANCY upon discharge; pt agreeable Family: Perez (son) - ; pt okay with discussing case with family Case discussed with Dr. Heaven Tolbert, DO - Internal Medicine PGY-1 Visit type - Emergency Visit Emergency Visit: No - New Patient This patient is new to me today: No - Critical Care Critical Care patient: No
--- NOTE | 2017-06-20 13:17 | PN ---
Teaching Attending Note Name of Resident: Haider Tolbert ATTENDING PHYSICIAN STATEMENT I saw and evaluated the patient. I reviewed the resident's note and discussed the case with the resident. I agree with the resident's findings and plan as documented. SUBJECTIVE:states he still feels weak but feels his speech is improved. denies CP, SOB, fever, chills, N/V/C/D OBJECTIVE: Last Vital Signs Temp Pulse Resp BP Pulse Ox 97.9 F 69 20 144/65 97 06/20/17 10:00 06/20/17 10:00 06/20/17 10:00 06/20/17 10:00 06/20/17 09:00 Intake & Output 06/17/17 06/18/17 06/19/17 06/20/17 23:59 23:59 23:59 23:59 Intake Total 700 1598 1201 Output Total 1500 1500 200 Balance -662 88 3661 Weight 177 lb 181 lb 4 oz 187 lb 4 oz General NAD CV S1 S2 + Lungs CTA anteriorly Abdomen soft, + bruising on L torso which is tender and petechiae across the lower abdomen. extremities large hematoma on both knees, petechia to B/L hips Neuro + dysarthric. CN grossly intact, sensation grossly intact, strength 3/5 LUE, 4/5 RUE 2/5 B/L LE. ASSESSMENT AND PLAN: 86yo M with PMH HTN and BPH presnted for Acute metabolic encephalopathy 1. Acute R infarct with possible decrease R vertebral artery flow.- stable. imaging studies done. puree diet. cont pt and speech therapy. neuro evaluated. on asa/statin 2. Rhabdomyolysis- likely due to prolonged immobility and crawling on his knees. CK under 1K. 3. UTI/orchitis- on ceftriaxone day 3. f/u cx 4. Troponinemia- possible demand ischemia or in setting of JUANIS and rhabdo. bradycardia reolved. cont to hold beta thelma. cardio on board. 5. Gross hematuria- possible BPH vs UTI. cont to have hematuria. UOP decreased from yesterday. on D51/3NS will increase rate and monitor UOP. if hematuria does not resolve may require cystoscopy. maintain phillip. hgb stable. txn if needed for Hgb <8. urology on board 6. s/p mechanical fall- likely due to CVA. multiple imaging studies with no acute fracture. check dedicated rib study to evaluate L rib pain 7. Acute metabolic encephalopathy- possible due to dehydration vs acute CVA. clinically improved. 8. Hypernatremia- dehydration. cont IVF d51/3NS 9. Transaminitis- likely dehydration. improving 10. hypokalemia- KCl in IVF 11. HTN- above goal. started norvasc yesterday. monitor. titrate to optimize BP 12. BPH- flomax 14. DVT ppx- hep sq.
--- NOTE | 2017-06-20 15:34 | PN ---
Progress Note, Physician History of Present Illness: Pt seen and examined at bedside. He says he feels thirsty. He denies shortness of breath. - Current Medication List Current Medications: Active Medications Acetaminophen (Tylenol -) 650 mg PO Q6H PRN PRN Reason: FEVER OR PAIN Last Admin: 06/19/17 21:28 Dose: 650 mg Amlodipine Besylate (Norvasc -) 5 mg PO DAILY [facility] Last Admin: 06/20/17 10:33 Dose: 5 mg Aspirin (Asa -) 81 mg PO DAILY [facility] Last Admin: 06/20/17 10:33 Dose: 81 mg Atorvastatin Calcium (Lipitor -) 80 mg PO HS [facility] Last Admin: 06/19/17 21:27 Dose: 80 mg Bacitracin (Bacitracin -) 1 applic TP DAILY [facility] Doxazosin Mesylate (Cardura -) 4 mg PO HS [facility] Last Admin: 06/19/17 21:28 Dose: 4 mg Finasteride (Proscar -) 5 mg PO DAILY [facility] Last Admin: 06/20/17 10:33 Dose: 5 mg CEFTRIAXONE 1 G/50 ML PREMIX (Ceftriaxone 1 Gm-D5w Bag) 50 mls @ 100 mls/hr IVPB DAILY [facility] Last Admin: 06/20/17 10:32 Dose: 100 mls/hr Potassium Chloride 10 meq/ (Dextrose/Sodium Chloride) 500 mls @ 150 mls/hr IVPB Q3H [facility] - Objective Vital Signs: Vital Signs Temperature 97.8 F 06/20/17 14:18 Pulse Rate 75 06/20/17 14:18 Respiratory Rate 18 06/20/17 14:18 Blood Pressure 145/64 06/20/17 14:18 O2 Sat by Pulse Oximetry (%) 97 06/20/17 09:00 Constitutional: Yes: Calm Eyes: Yes: Conjunctiva Clear HENT: Yes: Atraumatic Cardiovascular: Yes: S1, S2 Respiratory: Yes: CTA Bilaterally Gastrointestinal: Yes: Soft Genitourinary: Yes: WNL Musculoskeletal: Yes: Muscle Weakness Edema: No Integumentary: Yes: Other (multiple abrasions) Neurological: Yes: Oriented Psychiatric: Yes: Oriented Labs: CBC, BMP 06/20/17 07:00 06/20/17 07:00 INR, PTT INR 1.12 (0.82-1.09) 06/17/17 21:26 Problem List - Problems (1) JUANIS (acute kidney injury) Code(s): N17.9 - ACUTE KIDNEY FAILURE, UNSPECIFIED (2) BPH (benign prostatic hyperplasia) Code(s): N40.0 - BENIGN PROSTATIC HYPERPLASIA WITHOUT LOWER URINRY TRACT SYMP (3) Dehydration Code(s): E86.0 - DEHYDRATION (4) HTN (hypertension) Code(s): I10 - ESSENTIAL (PRIMARY) HYPERTENSION (5) Hypernatremia Code(s): E87.0 - HYPEROSMOLALITY AND HYPERNATREMIA (6) Rhabdomyolysis Code(s): M62.82 - RHABDOMYOLYSIS Qualifiers: Rhabdomyolysis type: traumatic Encounter type: initial encounter Qualified Code(s): T79.6XXA - Traumatic ischemia of muscle, initial encounter (7) UTI (urinary tract infection) Code(s): N39.0 - URINARY TRACT INFECTION, SITE NOT SPECIFIED Assessment/Plan Current Medications Generic Name Dose Route Start Last Admin Trade Name Freq PRN Reason Stop Dose Admin Acetaminophen 650 mg 06/19/17 20:31 06/19/17 21:28 Tylenol - PO 650 mg Q6H PRN Administration FEVER OR PAIN Amlodipine Besylate 5 mg 06/20/17 10:00 06/20/17 10:33 Norvasc - PO 5 mg DAILY [facility] Administration Aspirin 81 mg 06/18/17 15:30 06/20/17 10:33 Asa - PO 81 mg DAILY [facility] Administration Atorvastatin Calcium 80 mg 06/19/17 22:00 06/19/17 21:27 Lipitor - PO 80 mg HS [facility] Administration Bacitracin 1 applic 06/20/17 11:30 Bacitracin - TP DAILY [facility] Doxazosin Mesylate 4 mg 06/18/17 22:00 06/19/17 21:28 Cardura - PO 4 mg HS [facility] Administration Finasteride 5 mg 06/18/17 17:45 06/20/17 10:33 Proscar - PO 5 mg DAILY [facility] Administration CEFTRIAXONE 1 G/50 ML PREMIX 50 mls @ 100 mls/hr 06/19/17 10:00 06/20/17 10: 32 Ceftriaxone 1 Gm-D5w Bag IVPB 100 mls/hr DAILY [facility] Administration Potassium Chloride 10 meq/ 500 mls @ 150 mls/hr 06/20/17 16:00 Dextrose/Sodium Chloride IVPB Q3H [facility] Impression 1. JUANIS 2. Hypernatremia 3. rhabdo 4. CVA 5. s/p fall 6. change in mental status 7. gross hematuria 8. hx HTN 9. leukocytosis 10. UTI Plan - change fluids to d5w - cpk is improving - monitor urine output - repeat labs in am - renal function stabilizing - urology input appreciated, monitor urine color - rhabdo likely from fall and being on the ground for a prolonged time - will follow
[2017-06-20] MEDS ORDERED: DEXTROSE 5%-WATER - 1,000 ML with POTASSIUM CHLORIDE 10 MEQ IVPB SCH (15:45)
[2017-06-20] MEDS ORDERED: DEXTROSE 5%-WATER - 1,000 ML with POTASSIUM CHLORIDE 10 MEQ IV SCH (15:45)
[2017-06-20] MEDS ORDERED: POTASSIUM CHLORIDE 10 MEQ in DEXTROSE 5%-1/3 NS - 500 ML IVPB SCH (16:00)
[2017-06-20] MEDS: BACITRACIN 15 GM TUBE TOPICAL OINTMENT TP SCH (16:08)
[2017-06-20] MEDS: POTASSIUM CHLORIDE 10 MEQ in DEXTROSE 5%-WATER - 1,000 ML IVPB SCH (16:11)
--- NOTE | 2017-06-20 17:41 | PN ---
Progress Note (short form) - Note Progress Note: 86 yo M with PMH of HTN and PBH, who presented due to AMS x 3 d, s/p fall, found to have UTI, hypernatremia, JUANIS and in Rhabdo. Patient reports 2 weeks of dysuria w/o f/c, pelvic or flank pain. He reports worsening confusion, new incontinence, generalized and b/l LE weakness and decreased PO intake x 3 days. Found to have elevated creatinine, NA, inc LFTs and WBC. 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 feels he is at baseline now. FU : this AM -doing well, awake and moving distal exe well (including LLE) LFTS and WBC trending down DOppler: IMPRESSION: Moderate calcified atheromatous plaque bilateral common carotid bifurcations, carotid bulbs and cervical internal carotid arteries. Elevated peak systolic velocity in the right internal carotid artery suggestive of 50-69 % stenosis. MRI BRAIN IMPRESSION: 1. Small, acute infarct in the right lateral lenticulostriate territory as described above, with adjacent chronic infarct in this region. No significant mass effects. No midline shift or hydrocephalus. 2. Generalized, age appropriate volume loss with mild chronic microvascular ischemic changes as described above. 3. Nonspecific left mastoid effusion. Please correlate clinically with direct visualization of the left posterior nasopharynx and left middle ear cavity. 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 Renal/: Yes: BPH - Alcohol/Substance Use Hx Alcohol Use: No - Smoking History Smoking history: Unknown if ever smoked Have you smoked in the past 12 months: No Home Medications - Allergies Allergies/Adverse Reactions: Allergies Allergy/AdvReac Type Severity Reaction Status Date / Time No Known Allergies Allergy Verified 06/17/17 19:56 Physical Exam-Neuro Vital Signs: Vital Signs Period Temp Pulse Resp BP Sys/Johnson Pulse Ox Last 24 Hr 97.5 F-100.5 F 58-75 18-20 127-154/64-76 97-98 Constitutional: Yes: No Distress, Calm Labs: CBCD WBC 8.9 K/mm3 (4.0-10.0) 06/20/17 07:00 RBC 4.46 M/mm3 (4.00-5.60) 06/20/17 07:00 Hgb 12.6 GM/dL (11.7-16.9) 06/20/17 07:00 Hct 38.6 % (35.4-49) 06/20/17 07:00 MCV 86.6 fl (80-96) 06/20/17 07:00 MCHC 32.7 g/dl (32.0-35.9) 06/20/17 07:00 RDW 14.2 % (11.9-15.9) 06/20/17 07:00 Plt Count 190 K/MM3 (134-434) 06/20/17 07:00 MPV 8.8 fl (7.5-11.1) 06/20/17 07:00 CMP Sodium 153 mmol/L (136-145) H 06/20/17 07:00 Potassium 3.6 mmol/L (3.5-5.1) 06/20/17 07:00 Chloride 115 mmol/L (98-107) H 06/20/17 07:00 Carbon Dioxide 30 mmol/L (21-32) 06/20/17 07:00 Anion Gap 8 (8-16) 06/20/17 07:00 BUN 32 mg/dL (7-18) H D 06/20/17 07:00 Creatinine 0.8 mg/dL (0.7-1.3) 06/20/17 07:00 Creat Clearance w eGFR > 60 (>60) 06/20/17 07:00 Calcium 8.3 mg/dL (8.5-10.1) L 06/20/17 07:00 Total Bilirubin 1.3 mg/dL (0.2-1.0) H 06/20/17 07:00 AST 113 U/L (15-37) H D 06/20/17 07:00 ALT 118 U/L (12-78) H 06/20/17 07:00 Alkaline Phosphatase 64 U/L (45-117) 06/20/17 07:00 Total Protein 5.2 g/dl (6.4-8.2) L 06/20/17 07:00 Albumin 2.7 g/dl (3.4-5.0) L 06/20/17 07:00 - Neuro Exam Level Of Consciousness: Yes: Alert (awake and alert, EOMI, no facial, motor UE slight asterixis, no drift, LLE weakness distally, left plantar up ) Gait: Deferred Imaging - Results Cat Scan: Report Reviewed MRI: Report Reviewed, Image Reviewed Problem List - Problems (1) CVA (cerebral vascular accident) Code(s): I63.9 - CEREBRAL INFARCTION, UNSPECIFIED (2) Acute metabolic encephalopathy Code(s): G93.41 - METABOLIC ENCEPHALOPATHY Assessment/Plan 86 yo M with PMH of HTN and PBH, who presented due to AMS x 3 d, s/p fall, found to have UTI, hypernatremia, JUANIS and in Rhabdo. Altered mental state, suspect S/p stroke with fall and rhabdomyloysis. Found to have elevated creatinine, NA, inc LFTs and WBC. new small vessel stroke with residual left side weakness--improving . 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
[2017-06-20] MEDS ORDERED: PT OWN MED DRAWER 7, Y5N ONE (20:53)
[2017-06-20] MEDS: ATORVASTATIN CA 80 MG TABLET (FP) PO SCH (22:23)
[2017-06-20] MEDS: DOXAZOSIN MESYLATE 4 MG TABLET PO SCH (22:23)
[2017-06-21] MEDS: POTASSIUM CHLORIDE 10 MEQ in DEXTROSE 5%-WATER - 1,000 ML IVPB SCH ×3 (02:09→22:00)
[2017-06-21 07:21] LABS: HEMATOCRIT 37.2 % (35.4-49); HEMOGLOBIN 12.4 GM/dL (11.7-16.9); MCH 28.7 pg (25.7-33.7); MCHC 33.3 g/dl (32.0-35.9); MEAN CELL VOLUME 86.1 fl (80-96); MEAN PLT VOLUME 8.7 fl (7.5-11.1); PLATELET COUNT 184 K/MM3 (134-434); RBC 4.32 M/mm3 (4.00-5.60); RDW 14.1 % (11.9-15.9); WHITE BLOOD COUNT 10.2 K/mm3 (4.0-10.0)
[2017-06-21 08:44] LABS: ALBUMIN 2.5 g/dl (3.4-5.0); ANION GAP 5 (8-16); BLOOD UREA NITROGEN 18 mg/dL (7-18); CALCIUM 7.9 mg/dL (8.5-10.1); CHLORIDE 109 mmol/L (98-107); CO2 29 mmol/L (21-32); GLUCOSE,RANDOM 113 mg/dL (74-106); POTASSIUM 3.7 mmol/L (3.5-5.1); SODIUM 143 mmol/L (136-145)
[2017-06-21 08:47] LABS: ALK PHOS 71 U/L (45-117); BILIRUBIN,TOTAL 1.1 mg/dL (0.2-1.0); CREATININE 0.6 mg/dL (0.7-1.3); SGOT/AST 75 U/L (15-37); SGPT/ALT 106 U/L (12-78); TOT PROT 4.9 g/dl (6.4-8.2)
[2017-06-21] MEDS: ASPIRIN 81 MG CHEWABLE TABLETS PO SCH (09:51)
[2017-06-21] MEDS: CEFTRIAXONE 1 G/50 ML PREMIX 50 ML IVPB SCH (09:51)
[2017-06-21] MEDS: BACITRACIN 15 GM TUBE TOPICAL OINTMENT TP SCH (09:51)
[2017-06-21] MEDS: amLODIPine BESYLATE 10 MG TABLET (FP) PO SCH (09:51)
[2017-06-21] MEDS: FINASTERIDE 5 MG TABLET (FP) PO SCH (09:51)
--- NOTE | 2017-06-21 11:34 | PN ---
Progress Note, MANAGER IN HOME - Note Progress Note: Selected Entries 06/20/17 06/20/17 06/20/17 02:00 06:00 09:26 Breakfast 75% Lunch Supper Temperature 98.1 F 97.5 F L 06/20/17 06/20/17 06/20/17 10:00 14:18 15:17 Breakfast Lunch 100% Supper Temperature 97.9 F 97.8 F 06/20/17 06/20/17 06/21/17 17:49 23:28 02:45 Breakfast Lunch Supper 100% Temperature 98.8 F 98.3 F 06/21/17 06/21/17 06:28 09:56 Breakfast Lunch Supper Temperature 98.2 F 97.7 F Laboratory Tests 06/20/17 06/21/17 07:00 06:20 WBC 8.9 10.2 H For MBS to further assess swallowing function, and provide most liberal, tolerated diet.
--- NOTE | 2017-06-21 12:30 | PN ---
Teaching Attending Note Name of Resident: Haider Tolbert ATTENDING PHYSICIAN STATEMENT I saw and evaluated the patient. I reviewed the resident's note and discussed the case with the resident. I agree with the resident's findings and plan as documented. SUBJECTIVE:strength somewhat improved. urine more pinkish. denies CP, SOB, fever , chills, N/V/C/D OBJECTIVE: Last Vital Signs Temp Pulse Resp BP Pulse Ox 97.7 F 86 20 164/70 97 06/21/17 09:56 06/21/17 09:56 06/21/17 09:56 06/21/17 09:56 06/20/17 21:00 General NAD CV S1 S2 + Lungs CTA anteriorly Abdomen soft, + bruising on L torso which is tender and petechiae across the lower abdomen. extremities large hematoma on both knees, petechia to B/L hips Neuro + dysarthric. CN grossly intact, sensation grossly intact, strength 4/5 LUE, 4/5 RUE 3/5 B/L LE. ASSESSMENT AND PLAN: 86yo M with PMH HTN and BPH presnted for Acute metabolic encephalopathy 1. Acute R infarct with possible decrease R vertebral artery flow.- stable. imaging studies done. puree diet. cont pt and speech therapy. neuro evaluated. on asa/statin 2. Rhabdomyolysis- likely due to prolonged immobility and crawling on his knees. CK under 1K. 3. UTI/orchitis- on ceftriaxone day 4. f/u cx 4. Troponinemia- possible demand ischemia or in setting of JUANIS and rhabdo. bradycardia resolved. cont to hold beta thelma. cardio on board. 5. Gross hematuria- possible BPH vs UTI. hematuria persists but more pinkish. if hematuria does not resolve may require cystoscopy. maintain phillip. hgb stable. txn if needed for Hgb <8. urology on board 6. s/p mechanical fall- likely due to CVA. multiple imaging studies with no acute fracture. Rib xr negative for fx. pain improving 7. Acute metabolic encephalopathy- possible due to dehydration vs acute CVA. at baseline 8. Hypernatremia- dehydration. resolved 9. Transaminitis- likely dehydration. improving 10. hypokalemia- KCl in IVF 11. HTN- above goal. increase norvasc to 10mg 12. BPH- flomax 14. DVT ppx- hep sq.
--- NOTE | 2017-06-21 15:26 | PN ---
Progress Note, Physician History of Present Illness: Pt seen and examined at bedside. He is awake and appears comfortable. - Current Medication List Current Medications: Active Medications Acetaminophen (Tylenol -) 650 mg PO Q6H PRN PRN Reason: FEVER OR PAIN Last Admin: 06/19/17 21:28 Dose: 650 mg Amlodipine Besylate (Norvasc -) 10 mg PO DAILY [facility] Last Admin: 06/21/17 09:51 Dose: 10 mg Aspirin (Asa -) 81 mg PO DAILY [facility] Last Admin: 06/21/17 09:51 Dose: 81 mg Atorvastatin Calcium (Lipitor -) 80 mg PO HS [facility] Last Admin: 06/20/17 22:23 Dose: 80 mg Bacitracin (Bacitracin -) 1 applic TP DAILY [facility] Last Admin: 06/21/17 09:51 Dose: 1 applic Doxazosin Mesylate (Cardura -) 4 mg PO HS [facility] Last Admin: 06/20/17 22:23 Dose: 4 mg Finasteride (Proscar -) 5 mg PO DAILY [facility] Last Admin: 06/21/17 09:51 Dose: 5 mg CEFTRIAXONE 1 G/50 ML PREMIX (Ceftriaxone 1 Gm-D5w Bag) 50 mls @ 100 mls/hr IVPB DAILY [facility] Last Admin: 06/21/17 09:51 Dose: 100 mls/hr Potassium Chloride 10 meq/ (Dextrose) 1,005 mls @ 42 mls/hr IVPB Q10H [facility] Last Admin: 06/21/17 10:25 Dose: 42 mls/hr - Objective Vital Signs: Vital Signs Temperature 97.7 F 06/21/17 09:56 Pulse Rate 86 06/21/17 09:56 Respiratory Rate 20 06/21/17 09:56 Blood Pressure 164/70 06/21/17 09:56 O2 Sat by Pulse Oximetry (%) 97 06/21/17 09:00 Constitutional: Yes: Calm Eyes: Yes: Conjunctiva Clear HENT: Yes: Atraumatic Neck: Yes: Supple Cardiovascular: Yes: S1, S2 Respiratory: Yes: CTA Bilaterally Gastrointestinal: Yes: Soft Genitourinary: Yes: Sheldon Present. No: Hematuria Musculoskeletal: Yes: Muscle Weakness Edema: No Neurological: Yes: Oriented Psychiatric: Yes: Oriented Labs: CBC, BMP 06/21/17 06:20 06/21/17 06:20 INR, PTT INR 1.12 (0.82-1.09) 06/17/17 21:26 Problem List - Problems (1) JUANIS (acute kidney injury) Code(s): N17.9 - ACUTE KIDNEY FAILURE, UNSPECIFIED (2) BPH (benign prostatic hyperplasia) Code(s): N40.0 - BENIGN PROSTATIC HYPERPLASIA WITHOUT LOWER URINRY TRACT SYMP (3) Dehydration Code(s): E86.0 - DEHYDRATION (4) HTN (hypertension) Code(s): I10 - ESSENTIAL (PRIMARY) HYPERTENSION (5) Hypernatremia Code(s): E87.0 - HYPEROSMOLALITY AND HYPERNATREMIA (6) Rhabdomyolysis Code(s): M62.82 - RHABDOMYOLYSIS Qualifiers: Rhabdomyolysis type: traumatic Encounter type: initial encounter Qualified Code(s): T79.6XXA - Traumatic ischemia of muscle, initial encounter (7) UTI (urinary tract infection) Code(s): N39.0 - URINARY TRACT INFECTION, SITE NOT SPECIFIED Assessment/Plan Current Medications Generic Name Dose Route Start Last Admin Trade Name Freq PRN Reason Stop Dose Admin Acetaminophen 650 mg 06/19/17 20:31 06/19/17 21:28 Tylenol - PO 650 mg Q6H PRN Administration FEVER OR PAIN Amlodipine Besylate 10 mg 06/21/17 10:00 06/21/17 09:51 Norvasc - PO 10 mg DAILY [facility] Administration Aspirin 81 mg 06/18/17 15:30 06/21/17 09:51 Asa - PO 81 mg DAILY [facility] Administration Atorvastatin Calcium 80 mg 06/19/17 22:00 06/20/17 22:23 Lipitor - PO 80 mg HS [facility] Administration Bacitracin 1 applic 06/20/17 11:30 06/21/17 09:51 Bacitracin - TP 1 applic DAILY [facility] Administration Doxazosin Mesylate 4 mg 06/18/17 22:00 06/20/17 22:23 Cardura - PO 4 mg HS [facility] Administration Finasteride 5 mg 06/18/17 17:45 06/21/17 09:51 Proscar - PO 5 mg DAILY [facility] Administration CEFTRIAXONE 1 G/50 ML PREMIX 50 mls @ 100 mls/hr 06/19/17 10:00 06/21/17 09: 51 Ceftriaxone 1 Gm-D5w Bag IVPB 100 mls/hr DAILY [facility] Administration Potassium Chloride 10 meq/ 1,005 mls @ 42 mls/hr 06/21/17 10:06 06/21/17 10: 25 Dextrose IVPB 42 mls/hr Q10H [facility] Administration Laboratory Tests 06/21/17 06:20 Creatine Kinase 385 H Impression 1. JUANIS 2. Hypernatremia 3. rhabdo 4. CVA 5. s/p fall 6. change in mental status 7. gross hematuria 8. hx HTN 9. leukocytosis 10. UTI Plan - decrease rate of fluids - sodium is improved - cpk is improved - repeat labs in am - hematuria is resolved - urology follow up - will follow Dr Mays
--- NOTE | 2017-06-21 16:40 | PN ---
Physical Exam: Note: pt seen earlier in morning SUBJECTIVE: Pt reports not problems overnight. On monitor pt had a run of sinus tach that terminated by itself. No complaints voiced today and agrees with NANCY for d/c. OBJECTIVE: Vital Signs Period Temp Pulse Resp BP Sys/Johnson Pulse Ox Last 24 Hr 97.7 F-98.8 F 74-86 18-20 137-164/68-76 97-97 GENERAL: NAD, awake, alert, and fully oriented, resting comfortably in bed HEENT: No JVD, EOMI, GAYE, NC/AT, loose fitting dentures noted. LUNGS: CTA bilaterally, no wheezes, rhonchi, rales. no accessory muscle use. HEART: RRR, S1, S2 with 2/6 systolic murmur at LLSB and apex ABDOMEN: Soft, nontender, nondistended, normoactive bowel sounds, no guarding EXTREMITIES: 2+ pulses, warm, well-perfused, no edema. NEUROLOGICAL: Improved speech today. No tongue deviation, no uvula deviation. Strength 5/5 in upper extremities b/l. Strength 2+/5 symmetrically in lower extremities, however pt can maintain his hip flexion at a higher degree today. Reflexes 2/4 throughout. Gait not observed. PSYCH: Normal mood, normal affect. SKIN: Warm, dry, no rashes noted, multiple abrasions to abdomen and b/l knees noted starting to scab. Laboratory Results - last 24 hr 06/21/17 06/21/17 06:20 06:20 WBC 10.2 H RBC 4.32 Hgb 12.4 Hct 37.2 MCV 86.1 MCH 28.7 MCHC 33.3 RDW 14.1 Plt Count 184 MPV 8.7 Sodium 143 Potassium 3.7 Chloride 109 H Carbon Dioxide 29 Anion Gap 5 L BUN 18 D Creatinine 0.6 L D Creat Clearance w eGFR > 60 Random Glucose 113 H Calcium 7.9 L Magnesium 2.0 Total Bilirubin 1.1 H AST 75 H D ALT 106 H Alkaline Phosphatase 71 Creatine Kinase 385 H Creatine Kinase Index 0.5 CK-MB (CK-2) 2.070 Total Protein 4.9 L Albumin 2.5 L Active Medications Generic Name Dose Route Start Last Admin Trade Name Freq PRN Reason Stop Dose Admin Acetaminophen 650 mg 06/19/17 20:31 06/19/17 21:28 Tylenol - PO 650 mg Q6H PRN Administration FEVER OR PAIN Amlodipine Besylate 10 mg 06/21/17 10:00 06/21/17 09:51 Norvasc - PO 10 mg DAILY [facility] Administration Aspirin 81 mg 06/18/17 15:30 06/21/17 09:51 Asa - PO 81 mg DAILY [facility] Administration Atorvastatin Calcium 80 mg 06/19/17 22:00 06/20/17 22:23 Lipitor - PO 80 mg HS [facility] Administration Bacitracin 1 applic 06/20/17 11:30 06/21/17 09:51 Bacitracin - TP 1 applic DAILY [facility] Administration Doxazosin Mesylate 4 mg 06/18/17 22:00 06/20/17 22:23 Cardura - PO 4 mg HS [facility] Administration Finasteride 5 mg 06/18/17 17:45 06/21/17 09:51 Proscar - PO 5 mg DAILY [facility] Administration CEFTRIAXONE 1 G/50 ML PREMIX 50 mls @ 100 mls/hr 06/19/17 10:00 06/21/17 09: 51 Ceftriaxone 1 Gm-D5w Bag IVPB 100 mls/hr DAILY [facility] Administration Potassium Chloride 10 meq/ 1,005 mls @ 42 mls/hr 06/21/17 10:06 06/21/17 10: 25 Dextrose IVPB 42 mls/hr Q10H [facility] Administration ASSESSMENT/PLAN: 86yo M with only h/o HTN and BPH presenting for AMS found to have UTI on UA with traumatic phillip insert and infarct confirmed by Brain MRI. 1) Acute R CVA --Head CT negative for hemorrhage; Brain MRI results reviewed --Neuro on board --Continue to medically optimize BP --Repeat vascular dopplers in 1 month --Continue Lipitor 80mg HS PO --Continue ASA 81mg qDaily --Speech and swallow with MBS today --Will f/u recommendations --Echocardiogram reviewed: normal LV func/size, mild MR with thickened valve --Carotid dopplers reviewed: R ICA with 59% - 60% stenosis 2) Hematuria --2/2 BPH with traumatic phillip insert vs. UTI with residual color due to rhabo --Phillip to maintain --Monitor output currently due to slight oliguria --Hematuria continues to clear --Urology consulted --If hematuria doesn't resolve may require cystoscopy 3) Sepsis 2/2 UTI vs. orchitis --Currently Ceftriaxone day 4 --BCx's and UCx negative 4) Suspected Rhabdomyolysis --2/2 immobility and dehydration with altered event --CK trending down to 300's today --Currently on D5W @42cc/hr + 10mEq KCl --Nephrology on board --Currently oliguric; will increase fluids to 150cc/hr with current fluids to try and stimulate urine output --Phillip in place 5) Elevated troponins --most likely 2/2 to demand ischemia --Continue cardiac monitoring; EKG without ST abnormalities --No need to trend anymore --Pt already on ASA 81mg 6) HTN --Outside of permissive HTN window --Goal BP <140 systolic --Continue medication regiment --Cardura 4mg HS --Atenolol 100mg qDaily --Increased norvasc to 10mg qdaily 7) BPH --Continue Finasteride FEN: Fluids: D5W @42cc/hr +10 KCl Electrolyte abnormalities: Resolved hypernatremia previously Nutrition: Dysphagia diet with thickened liquids PPX DVT - Heparin SQ TID Dispo: Pt will need NANCY upon discharge; pt agreeable Family: Perez (son) - ; pt okay with discussing case with family Case discussed with Dr. Heaven Tolbert, DO - Internal Medicine PGY-1 Visit type - Emergency Visit Emergency Visit: No - New Patient This patient is new to me today: No - Critical Care Critical Care patient: No
[2017-06-21] MEDS ORDERED: PT OWN MED DRAWER 7, Y5N ONE (22:04)
[2017-06-21] MEDS: ATORVASTATIN CA 80 MG TABLET (FP) PO SCH (22:06)
[2017-06-21] MEDS: DOXAZOSIN MESYLATE 4 MG TABLET PO SCH (22:06)
[2017-06-22] MEDS: POTASSIUM CHLORIDE 10 MEQ in DEXTROSE 5%-WATER - 1,000 ML IVPB SCH ×2 (05:15→22:17)
[2017-06-22 07:28] LABS: HEMATOCRIT 38.5 % (35.4-49); HEMOGLOBIN 12.5 GM/dL (11.7-16.9); MCHC 32.6 g/dl (32.0-35.9); MEAN CELL VOLUME 86.1 fl (80-96); MEAN PLT VOLUME 8.9 fl (7.5-11.1); PLATELET COUNT 208 K/MM3 (134-434); RBC 4.47 M/mm3 (4.00-5.60); RDW 13.8 % (11.9-15.9); WHITE BLOOD COUNT 11.7 K/mm3 (4.0-10.0)
[2017-06-22 07:52] LABS: ALBUMIN 2.5 g/dl (3.4-5.0); ANION GAP 10 (8-16); BILIRUBIN,TOTAL 0.8 mg/dL (0.2-1.0); BLOOD UREA NITROGEN 14 mg/dL (7-18); CHLORIDE 105 mmol/L (98-107); CO2 30 mmol/L (21-32); CREATININE 0.7 mg/dL (0.7-1.3); GLUCOSE,RANDOM 111 mg/dL (74-106); POTASSIUM 3.9 mmol/L (3.5-5.1); SGOT/AST 65 U/L (15-37); SGPT/ALT 98 U/L (12-78); SODIUM 145 mmol/L (136-145)
[2017-06-22 07:53] LABS: ALK PHOS 84 U/L (45-117); TOT PROT 5.1 g/dl (6.4-8.2)
[2017-06-22] MEDS: BACITRACIN 15 GM TUBE TOPICAL OINTMENT TP SCH (09:48)
[2017-06-22] MEDS: amLODIPine BESYLATE 10 MG TABLET (FP) PO SCH (09:48)
[2017-06-22] MEDS: FINASTERIDE 5 MG TABLET (FP) PO SCH (09:48)
[2017-06-22] MEDS: ASPIRIN 81 MG CHEWABLE TABLETS PO SCH (09:48)
[2017-06-22] MEDS: CEFTRIAXONE 1 G/50 ML PREMIX 50 ML IVPB SCH (09:48)
--- NOTE | 2017-06-22 15:57 | PN ---
Progress Note (short form) - Note Progress Note: asymptomatic. states strength is improving. dnies Cp, SOB, fever, chills, n?v/C/ D Current Medications Generic Name Dose Route Start Last Admin Trade Name Freq PRN Reason Stop Dose Admin Acetaminophen 650 mg 06/19/17 20:31 06/19/17 21:28 Tylenol - PO 650 mg Q6H PRN Administration FEVER OR PAIN Amlodipine Besylate 10 mg 06/21/17 10:00 06/22/17 09:48 Norvasc - PO 10 mg DAILY [facility] Administration Aspirin 81 mg 06/18/17 15:30 06/22/17 09:48 Asa - PO 81 mg DAILY [facility] Administration Atorvastatin Calcium 80 mg 06/19/17 22:00 06/21/17 22:06 Lipitor - PO 80 mg HS [facility] Administration Bacitracin 1 applic 06/20/17 11:30 06/22/17 09:48 Bacitracin - TP 1 applic DAILY [facility] Administration Doxazosin Mesylate 4 mg 06/18/17 22:00 06/21/17 22:06 Cardura - PO 4 mg HS [facility] Administration Finasteride 5 mg 06/18/17 17:45 06/22/17 09:48 Proscar - PO 5 mg DAILY [facility] Administration CEFTRIAXONE 1 G/50 ML PREMIX 50 mls @ 100 mls/hr 06/19/17 10:00 06/22/17 09: 48 Ceftriaxone 1 Gm-D5w Bag IVPB 100 mls/hr DAILY [facility] Administration Potassium Chloride 10 meq/ 1,005 mls @ 42 mls/hr 06/21/17 10:06 06/22/17 05: 15 Dextrose IVPB Not Given Q10H [facility] Last Vital Signs Temp Pulse Resp BP Pulse Ox 98.2 F 88 20 127/64 97 06/22/17 14:00 06/22/17 14:00 06/22/17 14:00 06/22/17 14:00 06/22/17 09:00 General NAD CV S1 S2 + Lungs CTA anteriorly Abdomen soft, + bruising on L torso no longer tender and petechiae across the lower abdomen. extremities large hematoma on both knees, petechia to B/L hips Neuro + dysarthric. CN grossly intact, sensation grossly intact, strength 4/5 B/ L UE 3/5 B/L LE. CBCD WBC 11.7 K/mm3 (4.0-10.0) H 06/22/17 06:30 RBC 4.47 M/mm3 (4.00-5.60) 06/22/17 06:30 Hgb 12.5 GM/dL (11.7-16.9) 06/22/17 06:30 Hct 38.5 % (35.4-49) 06/22/17 06:30 MCV 86.1 fl (80-96) 06/22/17 06:30 MCHC 32.6 g/dl (32.0-35.9) 06/22/17 06:30 RDW 13.8 % (11.9-15.9) 06/22/17 06:30 Plt Count 208 K/MM3 (134-434) 06/22/17 06:30 MPV 8.9 fl (7.5-11.1) 06/22/17 06:30 CMP Sodium 145 mmol/L (136-145) 06/22/17 06:30 Potassium 3.9 mmol/L (3.5-5.1) 06/22/17 06:30 Chloride 105 mmol/L (98-107) 06/22/17 06:30 Carbon Dioxide 30 mmol/L (21-32) 06/22/17 06:30 Anion Gap 10 (8-16) 06/22/17 06:30 BUN 14 mg/dL (7-18) D 06/22/17 06:30 Creatinine 0.7 mg/dL (0.7-1.3) 06/22/17 06:30 Creat Clearance w eGFR > 60 (>60) 06/22/17 06:30 Calcium 9.0 mg/dL (8.5-10.1) 06/22/17 06:30 Total Bilirubin 0.8 mg/dL (0.2-1.0) D 06/22/17 06:30 AST 65 U/L (15-37) H 06/22/17 06:30 ALT 98 U/L (12-78) H 06/22/17 06:30 Alkaline Phosphatase 84 U/L (45-117) 06/22/17 06:30 Total Protein 5.1 g/dl (6.4-8.2) L 06/22/17 06:30 Albumin 2.5 g/dl (3.4-5.0) L 06/22/17 06:30 Microbiology 06/18/17 03:21 Blood Culture - Preliminary Blood - Peripheral Venous NO GROWTH OBTAINED AFTER 96 HOURS, INCUBATION TO CONTINUE FOR 1 DAYS. 06/18/17 03:21 Blood Culture - Preliminary Blood - Peripheral Venous NO GROWTH OBTAINED AFTER 96 HOURS, INCUBATION TO CONTINUE FOR 1 DAYS. ASSESSMENT AND PLAN: 86yo M with PMH HTN and BPH presnted for Acute metabolic encephalopathy 1. Acute R infarct with possible decrease R vertebral artery flow.- stable. imaging studies done. diet updated to chopped diet with thin liquids. cont pt and speech therapy. neuro evaluated. on asa/statin 2. Rhabdomyolysis- likely due to prolonged immobility and crawling on his knees. CK normalized 3. UTI/orchitis- on ceftriaxone day 5. will switch to keflex po and complete 10 day course. f/u cx 4. Troponinemia- possible demand ischemia or in setting of JUANIS and rhabdo. bradycardia resolved. cont to hold beta thelma. cardio on board. 5. Gross hematuria- possible BPH vs UTI. hematuria now resolved. d/c phillip. Hgb stable. urology on board 6. s/p mechanical fall- likely due to CVA. multiple imaging studies with no acute fracture. Rib xr negative for fx. pain improving 7. Acute metabolic encephalopathy- possible due to dehydration vs acute CVA. at baseline 8. Hypernatremia- dehydration. resolved 9. Transaminitis- likely dehydration. improving 10. hypokalemia- resolved 11. HTN- controlled. at goal. cont norvasc 10mg 12. BPH- flomax 14. DVT ppx- hep sq. 15. d/c to [facility] for NANCY. spoke to present at bedside. verbalized agreement with plan. all questions answered. Visit type - Emergency Visit Emergency Visit: Yes ED Registration Date: 06/18/17 Care time: The patient presented to the Emergency Department on the above date and was hospitalized for further evaluation of their emergent condition. - New Patient This patient is new to me today: No - Critical Care Critical Care patient: No - Discharge Referral Referred to [facility] Yes Physician Referral: Yoni Funes MD (Int Med)
--- NOTE | 2017-06-22 18:35 | PN ---
Progress Note (short form) - Note Progress Note: s/p hypernatremia Current Medications Acetaminophen (Tylenol -) 650 mg PO Q6H PRN PRN Reason: FEVER OR PAIN Last Admin: 06/19/17 21:28 Dose: 650 mg Amlodipine Besylate (Norvasc -) 10 mg PO DAILY [facility] Last Admin: 06/22/17 09:48 Dose: 10 mg Aspirin (Asa -) 81 mg PO DAILY [facility] Last Admin: 06/22/17 09:48 Dose: 81 mg Atorvastatin Calcium (Lipitor -) 80 mg PO HS [facility] Last Admin: 06/21/17 22:06 Dose: 80 mg Bacitracin (Bacitracin -) 1 applic TP DAILY [facility] Last Admin: 06/22/17 09:48 Dose: 1 applic Doxazosin Mesylate (Cardura -) 4 mg PO HS [facility] Last Admin: 06/21/17 22:06 Dose: 4 mg Finasteride (Proscar -) 5 mg PO DAILY [facility] Last Admin: 06/22/17 09:48 Dose: 5 mg CEFTRIAXONE 1 G/50 ML PREMIX (Ceftriaxone 1 Gm-D5w Bag) 50 mls @ 100 mls/hr IVPB DAILY [facility] Last Admin: 06/22/17 09:48 Dose: 100 mls/hr Potassium Chloride 10 meq/ (Dextrose) 1,005 mls @ 42 mls/hr IVPB Q10H [facility] Last Admin: 06/22/17 05:15 Dose: Not Given Last Vital Signs Temp Pulse Resp BP Pulse Ox 98.6 F 92 H 20 154/55 97 06/22/17 17:50 06/22/17 17:50 06/22/17 17:50 06/22/17 17:50 06/22/17 09:00 CBC, BMP 06/22/17 06:30 06/22/17 06:30
[2017-06-22] MEDS: ATORVASTATIN CA 80 MG TABLET (FP) PO SCH (22:17)
[2017-06-22] MEDS: DOXAZOSIN MESYLATE 4 MG TABLET PO SCH (22:17)
--- NOTE | 2017-06-23 00:08 | PN ---
Progress Note, Physician History of Present Illness: 86 yo M with PMH of HTN and PBH, who presented due to AMS x 3 d, s/p fall, found to have UTI, hypernatremia, JUANIS and in Rhabdo. Patient reports 2 weeks of dysuria w/o f/c, pelvic or flank pain. He reports worsening confusion, new incontinence, generalized and b/l LE weakness and decreased PO intake x 3 days. Found to have elevated creatinine, NA, inc LFTs and WBC. 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 feels he is at baseline now. F/U: His MS is improved, no new complaints. - Current Medication List Current Medications: Active Medications Acetaminophen (Tylenol -) 650 mg PO Q6H PRN PRN Reason: FEVER OR PAIN Last Admin: 06/19/17 21:28 Dose: 650 mg Amlodipine Besylate (Norvasc -) 10 mg PO DAILY [facility] Last Admin: 06/22/17 09:48 Dose: 10 mg Aspirin (Asa -) 81 mg PO DAILY [facility] Last Admin: 06/22/17 09:48 Dose: 81 mg Atorvastatin Calcium (Lipitor -) 80 mg PO HS [facility] Last Admin: 06/22/17 22:17 Dose: 80 mg Bacitracin (Bacitracin -) 1 applic TP DAILY [facility] Last Admin: 06/22/17 09:48 Dose: 1 applic Doxazosin Mesylate (Cardura -) 4 mg PO HS [facility] Last Admin: 06/22/17 22:17 Dose: 4 mg Finasteride (Proscar -) 5 mg PO DAILY [facility] Last Admin: 06/22/17 09:48 Dose: 5 mg CEFTRIAXONE 1 G/50 ML PREMIX (Ceftriaxone 1 Gm-D5w Bag) 50 mls @ 100 mls/hr IVPB DAILY [facility] Last Admin: 06/22/17 09:48 Dose: 100 mls/hr Potassium Chloride 10 meq/ (Dextrose) 1,005 mls @ 42 mls/hr IVPB Q10H [facility] Last Admin: 06/22/17 22:17 Dose: Not Given - Objective Vital Signs: Vital Signs Temperature 98.6 F 06/22/17 17:50 Pulse Rate 92 H 06/22/17 17:50 Respiratory Rate 20 06/22/17 17:50 Blood Pressure 154/55 06/22/17 17:50 O2 Sat by Pulse Oximetry (%) 97 06/22/17 09:00 Constitutional: Yes: No Distress Eyes: Yes: EOM Intact HENT: Yes: Atraumatic Neck: Yes: Supple Cardiovascular: Yes: Regular Rate and Rhythm Extremities: Yes: WNL Edema: No Neurological: Yes: Alert, Oriented, Babinski negative, Cran Nerves II-XII Intact ...Motor Strength: LLE (4+/5 otherwise no drift in UEs , no focal weakness.) Labs: CBC, BMP 06/22/17 06:30 06/22/17 06:30 INR, PTT INR 1.12 (0.82-1.09) 06/17/17 21:26 - ....Imaging MRI: Report Reviewed, Image Reviewed (R BG acute infarct) Assessment/Plan 86 yo M with PMH of HTN and PBH, who presented due to AMS x 3 d, s/p fall, found to have UTI, hypernatremia, JUANIS and in Rhabdo; Small R BG acute infarct per MRI ; carotid u/s no stenosis; ECHO WNL. His AMS is improved. I suggest ; Adding plavix to baby asp for 3 months for stroke prevention and c/w baby asp there after- CHANCE study. c/w statin C/W PT/OT Placement Health maintenance per primary team. Luis Miguel Munson MD [phone]
[2017-06-23] MEDS: POTASSIUM CHLORIDE 10 MEQ in DEXTROSE 5%-WATER - 1,000 ML IVPB SCH (01:54)
[2017-06-23] MEDS ORDERED: ATENOLOL 25 MG TABLET (FP) PO SCH (10:00)
[2017-06-23] MEDS ORDERED: CEPHALEXIN MONOHYDRATE 500 MG CAPSULE (UD) PO SCH (10:00)
[2017-06-23] MEDS: ASPIRIN 81 MG CHEWABLE TABLETS PO SCH (11:05)
[2017-06-23] MEDS: amLODIPine BESYLATE 10 MG TABLET (FP) PO SCH (11:05)
[2017-06-23] MEDS: FINASTERIDE 5 MG TABLET (FP) PO SCH (11:05)
[2017-06-23] MEDS: BACITRACIN 15 GM TUBE TOPICAL OINTMENT TP SCH (11:05)
--- NOTE | 2017-06-23 11:34 | HOSP ---
Subjective - Review of Symptoms Subjective: spoke to family over the phone in the evening yesterday when ambulance arrived. claimed she was not notified of his discharge and was refusing to allow him to be released. I reminded her of our conversation earlier in the day and that he was accepted at both [facility] and [facility] and she requested [facility] and told her that ambulance will pick him up at 1830 today which she acknowledge. asked her if should notify son which she stated she would. Spoke with son as well and now [facility]. Stated that they did not request this facility and gave a preference of [facility] on Saturday but ultimately choosed [facility] on my conversation earlier today. Spoke to SW in the AM who [facility]. Spoke to both son and present at bedside. Discussed in details events of yesterday and earlier in the week and how she was notified on Saturday that he will likely leave over the weekend if there is a bed available which she does acknowledge now but stated she changed her mind on facility. Awaiting to hear if she was accepted to [facility]. if not family is ok with discharge to [facility]. SW aware Informed them of medication changes. Started on plavix [id number] at Neuro recommendations. Will re-start atenolol at lower dose due to BP being above goal All questions answered. verbalized agreement to leaving today to either facilities. Physical Examination Vital Signs: Vital Signs Temperature 98.4 F 06/23/17 06:00 Pulse Rate 87 06/23/17 06:00 Respiratory Rate 20 06/23/17 06:00 Blood Pressure 154/77 06/23/17 06:00 O2 Sat by Pulse Oximetry (%) 95 06/22/17 21:00 Labs: CBC, BMP 06/22/17 06:30 06/22/17 06:30
[2017-06-23 12:06] VITALS: BP 143/73; PULSE 103; TEMP 98
[2017-06-23] MEDS ORDERED: CLOPIDOGREL BISULFATE 75 MG TABLET (FP) PO STA (12:29)
== END 2017-06-23 14:06 | DRG 64 ==
LOC: JER 19:37 → JERBED 06-18 01:45 → J5S 06-18 14:51 → J4S 06-18 17:38
PROVIDERS: ADMIT Internal Medicine; ATTEND Internal Medicine
DX: I63.9 Cerebral infarction, unspecified (principal); G93.41 Metabolic encephalopathy; N17.9 Acute kidney failure, unspecified; M62.82 Rhabdomyolysis; E87.0 Hyperosmolality and hypernatremia; N39.0 Urinary tract infection, site not specified; G81.94 Hemiplegia, unspecified affecting left nondominant side; N40.0 Benign prostatic hyperplasia without lower urinary tract symptoms; I10 Essential (primary) hypertension; D72.829 Elevated white blood cell count, unspecified; E86.0 Dehydration; M79.602 Pain in left arm; R74.0 Nonspecific elevation of levels of transaminase and lactic acid dehydrogenase [LDH]; E78.5 Hyperlipidemia, unspecified; N50.89 Other specified disorders of the male genital organs; R31.0 Gross hematuria; E87.6 Hypokalemia; R41.82 Altered mental status, unspecified; R00.1 Bradycardia, unspecified; N45.2 Orchitis
CPT/HCPCS: 36415; 70450-TC; 70551-TC; 71010-TC; 71101-TC; 72125-TC; 72170-TC; 73030-TC-LT; 74230-TC; 76775-TC; 76870-TC; 80048; 80053; 81003; 81015; 82436; 82465; 82550; 82553; 83690; 83718; 83721; 83735; 84100; 84133; 84300; 84478; 84484; 85025; 85027; 85610; 86850; 86900; 86901; 87040; 87086; 92611-GN; 93005; 93010; 93306-TC; 93880-TC; 97116-GP; 97161-GP; 99285-25; J1644